=== PATIENT | female | born 1950 | race Caucasian/White ===

== ENCOUNTER 2016-12-10 10:36 | Emergency (ER) | payer SELFPAY ==
[2016-12-10 13:23] VITALS: BP 126/72
--- NOTE | 2016-12-10 15:21 | UC ---
Respiratory Complaint HPI - HPI Summary HPI Summary: patient presents to with CC of cough, sinus pressure and mucous production x9 days. She recently traveled here from [facility] and states she has been under stress. Denies fevers. Aches and chills x 1 day. Denies smoking history or other lung disease. She is otherwise healthy. Taken nyquil and dayquil without relief. cough is 8/10 and productive. Denies other symptoms. - History of Current Complaint Chief Complaint: UCRespiratory Stated Complaint: COUGH, AND SORE THROAT Time Seen by Provider: 12/10/16 13:19 Hx Obtained From: Patient ?: No Onset/Duration: Gradual Onset Timing: Intermittent Episodes Severity Initially: Moderate Severity Currently: Moderate Pain Intensity: 2 Pain Scale Used: 0-10 Numeric Character: Cough: Productive Aggravating Factors: Nothing Alleviating Factors: Nothing Associated Signs And Symptoms: Positive: Chills, Nasal Congestion, Sinus Discomfort - Risk Factors Pulmonary Embolism Risk Factors: Negative Cardiac Risk Factors: Negative Pseudomonas Risk Factors: Negative Tuberculosis Risk Factors: Negative - Allergies/Home Medications Allergies/Adverse Reactions: Allergies Allergy/AdvReac Type Severity Reaction Status Date / Time Aspirin Allergy See Comment Verified 04/05/16 18:11 PMH/Surg Hx/FS Hx/Imm Hx Previously Healthy: Yes - Surgical History Surgical History: Yes Surgery Procedure, Year, and Place: L knee surgery - Family History Known Family History: Positive: Cardiac Disease, Hypertension - Social History Occupation: Employed Full-time Lives: With Family Alcohol Use: Occasionally Substance Use Type: None Smoking Status (MU): Former Smoker Review of Systems Constitutional: Negative Skin: Negative ENT: Nasal Discharge, Sinus Congestion, Sinus Pain/Tenderness Respiratory: Cough Cardiovascular: Negative Motor: Negative Neurovascular: Negative Neurological: Negative Psychological: Negative All Other Systems Reviewed And Are Negative: Yes Physical Exam Triage Information Reviewed: Yes Appearance: Well-Appearing, No Pain Distress, Well-Nourished Vital Signs: Initial Vital Signs Temp 97.8 F 12/10/16 10:41 Pulse 65 12/10/16 10:41 Resp 16 12/10/16 10:41 BP 126/73 12/10/16 10:41 Pulse Ox 100 12/10/16 10:41 Vital Signs Reviewed: Yes Eye Exam: Normal Eyes: Positive: Conjunctiva Clear ENT: Positive: Pharynx normal, Nasal congestion, Nasal drainage, Other: - pain on palpation of sinus Dental Exam: Normal Neck exam: Normal Neck: Positive: Supple, Nontender, No Lymphadenopathy Respiratory Exam: Normal Respiratory: Positive: Chest non-tender Cardiovascular Exam: Normal Cardiovascular: Positive: RRR Musculoskeletal Exam: Normal Musculoskeletal: Positive: Strength Intact Neurological Exam: Normal Neurological: Positive: Alert Psychological: Positive: Normal Response To Family, Age Appropriate Behavior Skin Exam: Normal Diagnostic Evaluation - Laboratory O2 Sat by Pulse Oximetry: 97 Respiratory Course/Dx - Course Course Of Treatment: Patient with sinus pressure and pain on palpation of left maxillary sinus. Productive cough x 9 days. Lungs CTA. Will treat with Augmentin and give cough medication. Patient OK with discharge. - Differential Dx/Diagnosis Differential Diagnosis/HQI/PQRI: Bronchitis, Lower Resp Infection, Sinusitis Provider Diagnoses: Sinusitis Discharge - Discharge Plan Condition: Stable Disposition: HOME Prescriptions: Amoxicillin/Clavulanate TAB* [Augmentin TAB 875*] 875 mg PO BID #10 tab guaiFENesin/CODIEN 100MG-10MG* [Robitussin AC 100Mg-10Mg*] 10 ml PO BID #120 udc MDD 10 Patient Education Materials: Sinusitis (ED) Referrals: No Primary Care Phys,NOPCP [Primary Care Provider] - Additional Instructions: Follow up with PCP Take antibiotic as prescribed Robitussin with codeine as needed for cough Humidifier in the home will help. Warm water with lemon and honey or tea for sore throat and congestion. Take medications as prescribed. IF symptoms do not improve in 1 week or you develop fevers, return to the . Tylenol for any discomfort
== END 2016-12-10 14:15 | disposition home or self-care (01) ==
LOC: UCEAST 10:36
DX: J32.9 Chronic sinusitis, unspecified (principal); Z87.891 Personal history of nicotine dependence
CPT/HCPCS: 99212; G0463

== ENCOUNTER 2017-02-14 10:39 | Day surgery (SDC) | payer BC ==
[~2017-02-14 10:39] MED LIST: Buffered Lidocaine 0.9% SYRIN* 5 ML/SYR SYRINGE INTRADERM ONE; Buffered Lidocaine 0.9% SYRIN* 5 ML/SYR SYRINGE ONE; ceFAZolin 2 GM PREMIX (*) 50 ML IVPB ONE
[2017-02-14] MEDS ORDERED: Bupivacaine 0.5% SDV PF* 30 ML VIAL ONE (11:05)
[2017-02-14] MEDS ORDERED: fentaNYL* 50 MCG/ML 2 ML VIAL (100 MCG VIAL) ONE (11:17)
[2017-02-14] MEDS ORDERED: Midazolam* 1 MG/ML 2 ML VIAL (2 MG) ONE (11:17)
[2017-02-14] MEDS ORDERED: Chloroprocaine 2%* 20 ML VIAL ONE (11:35)
[2017-02-14] MEDS ORDERED: fentaNYL* 50 MCG/ML 2 ML VIAL (100 MCG VIAL) IV PRN (12:00)
[2017-02-14] MEDS ORDERED: Ketorolac INJ* 30 MG/ML 1 ML VIAL IV PRN (12:00)
[2017-02-14] MEDS ORDERED: oxyCODONE/Acetamin 5/325 MG* TAB PO PRN (12:00)
[2017-02-14] MEDS ORDERED: DiMENhydriNATE IV* 50 MG/ML VIAL IV PUSH PRN (12:00)
[2017-02-14] MEDS ORDERED: oxyCODONE TAB* 5 MG TAB ONE (13:46)
[2017-02-14 14:03] VITALS: BP 124/70
--- NOTE | 2017-02-15 03:30 | OP ---
DATE OF OPERATION: 02/14/17 [facility] DATE OF : 54 SURGEON: Ilya Lipscomb MD FRANCHISE SPECIALIST: Brisa Gurrola PA-C ANESTHESIOLOGIST: Narayan Wei MD ANESTHESIA: Spinal PRE-OP DIAGNOSIS: Extensive tenosynovitis, left ankle soft tissues. POST-OP DIAGNOSIS: Extensive tenosynovitis, left ankle, soft tissues. OPERATIVE PROCEDURE: Biopsy and synovectomy, left posterolateral hind foot. DESCRIPTION OF PROCEDURE: The patient was taken to the operating room where we opened up along the fibula. We incised the retinaculum and subluxed the tendons anteriorly. There was a copious amount of pink and brownish synovium wrapping around the tendon and fully investing the posterolateral recess between the fibula and the tibia. We removed probably a 10 to 12 cubic centimeters of the synovium. We also sent cultures. In one area, the synovium appeared to be adherent to the posterior aspect of the fibula and also around the posterolateral edges of the subtalar joint appeared to be somewhat erosive at the margin of the joint. After irrigating and doing the biopsy, we replaced the tendons back in their sheath and repaired the retinaculum with through bone sutures. We then placed subcutaneous Vicryl and kenzie for the skin and a compression dressing plaster splint applied. [id number]/[facility] #: [id number] [facility] HEALTHElías
== END 2017-02-14 14:25 | disposition home or self-care (01) ==
LOC: OR 10:39
PROVIDERS: ATTEND Orthopaedic Surgery
DX: M65.872 Other synovitis and tenosynovitis, left ankle and foot (principal); I10 Essential (primary) hypertension; E78.5 Hyperlipidemia, unspecified; E07.9 Disorder of thyroid, unspecified; F41.9 Anxiety disorder, unspecified; Z88.6 Allergy status to analgesic agent
CPT/HCPCS: 87070; 87073; 87205; 88305; A9270-GY; C1776; J0690; J2250; J2400; J3010

== ENCOUNTER 2018-01-29 11:09 | Emergency (ER) | payer BC ==
[2018-01-29 11:23] VITALS: BP 145/74
--- NOTE | 2018-01-29 11:35 | UC ---
Epistaxis Nasal HPI - HPI Summary HPI Summary: This patient is a 67 year old F presenting to [facility] care with a chief complaint of pruritic feeling inside nose that began 3 days ago. The patient rates the pain 5/10 in severity. Symptoms aggravated by nothing. Symptoms alleviated by nothing. Patient reports bloody nasal discharge, pruritic eyes, discharge from eyes, and pruritic throat. Patient reports recently starting Elissa for these symptoms. - History of Current Complaint Chief Complaint: UCRespiratory Stated Complaint: SINUS COMPLAINT Time Seen by Provider: 01/29/18 11:27 Hx Obtained From: Patient ?: No Onset/Duration: Sudden Onset, Lasting Days, Still Present Timing: Constant Severity Initially: Moderate Severity Currently: Moderate Pain Intensity: 5 Pain Scale Used: 0-10 Numeric Aggravating Factor(s): Nothing Alleviating Factor(s): Nothing - Allergies/Home Medications Allergies/Adverse Reactions: Allergies Allergy/AdvReac Type Severity Reaction Status Date / Time aspirin Allergy Anaphylatic Verified 01/29/18 11:25 Shock PMH/Surg Hx/FS Hx/Imm Hx Previously Healthy: No Cardiovascular History: Hypertension Psychological History: Anxiety, Depression - Surgical History Surgical History: Yes Surgery Procedure, Year, and Place: L [facility], [facility]. [facility], [facility], [facility] LEFT FOOT BIOPSY-[facility] - Family History Known Family History: Positive: Cardiac Disease, Hypertension - Social History Occupation: Retired Lives: With Family Alcohol Use: Occasionally Alcohol Amount: social Substance Use Type: None Smoking Status (MU): Former Smoker Amount Used/How Often: 1/2 pack a day for 10 years When Did the Patient Quit Smoking/Using Tobacco: 2001 Review of Systems Eyes: Other - Positive pruritic eyes. Negative discharge from eyes ENT: Nasal Discharge - Bloody, Other - Positive pruritic throat and pruritic feeling inside nose All Other Systems Reviewed And Are Negative: Yes Physical Exam - Summary Physical Exam Summary: General: well-appearing, no pain distress Skin: warm, color reflects adequate perfusion, dry Head: normal Eyes: EOMI, CINDY ENT: Positive rhinorrhea. Erythematous nasal mucosa. Neck: supple, nontender Respiratory: CTA, breath sounds present Cardiovascular: RRR Abdomen: soft, nontender Bowel: present Musculoskeletal: normal, strength/ROM intact Neurological: sensory/motor intact, A&O x3 Psychological: affect/mood appropriate Triage Information Reviewed: Yes Vital Signs: Initial Vital Signs Temp 97.1 F 01/29/18 11:20 Pulse 67 01/29/18 11:20 Resp 12 01/29/18 11:20 BP 145/74 01/29/18 11:20 Pulse Ox 99 01/29/18 11:20 Vital Signs Reviewed: Yes Epistaxis Nasal Course/Dx - Course Course Of Treatment: DISCUSSED VIRAL VERSES BACTERIAL INFECTION AND THE ROLE OF ANTIBIOTICS. THE PATIENT WISHES TO BE ON ANTIBIOTICS AT THIS TIME. - Differential Dx/Diagnosis Provider Diagnoses: SINUSITIS Discharge - Sign-Out/Discharge Documenting (check all that apply): Patient Departure All imaging exams completed and their final reports reviewed: No Studies - Discharge Plan Condition: Stable Disposition: HOME Prescriptions: Amoxicillin/Clavulanate TAB* [Augmentin TAB 875*] 875 mg PO BID #20 tab Patient Education Materials: Sinusitis (ED) Referrals: Amadou Duobis NP [Primary Care Provider] - Additional Instructions: FOLLOW UP WITH YOUR DOCTOR IF NOT COMPLETELY IMPROVED. GET RECHECKED FOR ANY WORSENING OF YOUR CONDITION OR QUESTIONS OR CONCERNS. - Billing Disposition and Condition Condition: STABLE Disposition: Home - Attestation Statements Document Initiated by Scribe: Yes Documenting Scribe: Zunilda Neri Provider For Whom Scribe is Documenting (Include Credential): Justin Santillan MD Scribe Attestation: IZunilda, scribed for Justin Santillan MD on 01/29/18 at 1144. Scribe Documentation Reviewed: Yes Provider Attestation: The documentation as recorded by the [email or web address] abrams accurately reflects the service I personally performed and the decisions made by me, Justin Santillan MD
== END 2018-01-29 11:45 | disposition home or self-care (01) ==
LOC: UCEAST 11:09
DX: J32.9 Chronic sinusitis, unspecified (principal); Z88.6 Allergy status to analgesic agent; Z87.891 Personal history of nicotine dependence
CPT/HCPCS: 99212; G0463

== ENCOUNTER 2018-02-21 12:09 | Observation (INO) | payer BC ==
--- OUTSIDE RECORDS SUMMARY | 2018-02-21 12:33 | XMS REPORT | Continuity of Care Document ---
:1950 External Reference #:[id number] Author Name Dre Cain M.D. Address [address] [place] [address] Care Team Providers Name Role Phone Silvino CHAPIN, Amadou Primary Care Physician Unavailable Payers Type Date Identification Numbers Payment Provider Subscriber Policy Number: [id number] [facility] PayID: [id number] [address] [address] [place] [address] Advance Directives Description No Information Available Problems Description No Information Family History Date Family Member(s) Problem(s) Comments General Cancer General Heart Disease Social History Type Date Description Comments Sex Unknown Occupation Retired Tobacco Use Start: Unknown End: Former Occasional Smoker Quit at age 57. Unknown Tobacco Use Start: Unknown Never Smoked Cigars Tobacco Use Start: Unknown Never Smoked A Pipe Smokeless Tobacco Never Used Smokeless Tobacco ETOH Use Currently occasionally consumes alcohol Tobacco Use Start: Unknown End: Patient is a former smoker Unknown Smoking Status Reviewed: 02/14/18 Patient is a former smoker Allergies, Adverse Reactions, Alerts Date Description Reaction Status Severity Comments 02/14/2018 Aspirin Active difficulty breathing Medications Medication Date Status Form Strength Qnty SIG Indications Ordering Provider Olopatadine HCL 02/14/ Active Solution 0.6% 91.5gm use 2 J30.9 Dre Mehta 2017 sprays in [place] M.D. nostril twice daily Rosuvastatin / Active Tablets 10mg daily Unknown Calcium 0000 Alprazolam / Active Tablets 0.5mg bid Unknown 0000 Folic Acid / Active Tablets 1mg daily Unknown 0000 Vitamin B-12 / Active Tablets as Unknown 0000 Sub directed Vitamin D3 / Active Capsules as Unknown 0000 directed Acetaminophen-C / Active Tablets 300-30mg prn Unknown odeine #3 0000 Sulfasalazine / Active Tablets 500mg Take Two Unknown 0000 Tablets By Mouth Twice A Day Immunizations Description No Information Available Vital Signs Date Vital Result Comment 02/14/2018 11:12am Weight 152.00 lb Weight 68.947 kg Height 63 inches 5'3" Height in cm's 160.0 cm BMI (Body Mass Index) 26.9 kg/m2 Results Description No Information Available Procedures Description No Information Available Encounters Type Date Location Provider Dx Diagnosis Office Visit 02/14/2018 [place],After Dre Mehta J34.89 Other specified 11:00a 06/06/07 Jackie Cain disorders of nose and nasal sinuses J30.9 Allergic rhinitis, unspecified J35.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 The dryness of the nose and the itching over lap and the tonsil stonesare a different problem. For the nose we discussed using:Saline with AlkalolPonaris oilsaline gelApplication of Vaseline or antibiotic ointmentAntihistamines, Claritin or Elissa. I would stay away from decongestantsIntranasal antihistaminesIntranasal corticosteroids like Flonase but this might be more drying.Allergy testing and immunotherapy.J30.9 Allergic rhinitis, unspecifiedNew Medication:Olopatadine HCL 0.6 % - use 2 sprays in each nostril twice dailyComments:I think she will do well with the DoqtheyhrwsT01.8 Other chronic diseases of tonsils and adenoidsComments:The patient is developing tonsilloliths. We discussed that this is debris build-up from the colonization of the tonsils with bacteria. It is a natural process that can be very annoying. They can be removed with a pick. Otherwise tonsillectomy is needed.
--- OUTSIDE RECORDS SUMMARY | 2018-02-21 12:33 | XMS REPORT ---
:1950 External Reference #:[id number] Author Organization [employer] Address [address] [place] [address] Phone [phone] Care Team Providers Name Role Phone Ivonne Stahl MD Primary Care Physician Unavailable Payers Type Date Identification Numbers Payment Provider Subscriber Commercial Policy Number: [id number] [employer] Shawna Harrison PayID: [id number] [address] [address] [place] [address] Problems Date Description Provider Status Onset: 03/14/2017 Impaired fasting glycaemia Amadou Dubois NP Active Onset: 03/14/2017 Essential hypertension Amadou Dubois NP Active Onset: 03/14/2017 Hyperlipidemia Amadou Dubois NP Active Onset: 03/14/2017 Acquired hypothyroidism Amadou Dubois NP Active Family History Date Family Member(s) Problem(s) Comments General Heart Disease General Hypertension General Cancer General Rheumatoid Arthritis Father Prostate Cancer at 72 Mother Stomach Cancer at 90 Social History Type Date Description Comments Lives With Spouse Occupation Retired ETOH Use Rarely consumes alcohol Smoking Patient is a former smoker Quit 1996, Started age 19, smoked 5 cigs per week Exercise Type/Frequency Exercises sporadically Allergies, Adverse Reactions, Alerts Date Description Reaction Status Severity Comments 02/08/2017 Aspirin active diff. breathing Medications Medication Date Status Form Strength Qnty SIG Indications Ordering Provider Omeprazole 02/20 Active Capsules 20mg 90cap 1 by mouth K21.[address] espinoza once daily DARI Dubois Losartan Potassium 02/13 Active Tablets 50mg 90tab 1 by mouth Amadou s once daily DARI Dubois Crestor 01/31 Active Tablets 10mg 90tab 1 by mouth Amadou s every day DARI Dubois Folic Acid 12/06 Active Tablets 1mg 90tab take one s capsule/tab Tony, let daily M.D. by mouth Caltrate 600+D 12/06 Active Tablets 600-800mg 60tab take one -Unit s capsule/tab Tony, let by M.D. mouth twice daily Alendronate Sodium 12/06 Active Tablets 70mg 4tabs 1 by mouth weekly 1 Tony, hour before M.D. breakfast with a full glass of water sitting up Lidoderm 12/01 Active Patches 5% 30uni 12 hours on ts 12 hours DARI Dubois off to affected area as needed Alprazolam 12/01 Active Tablets 0.5mg 60tab 1 tablet s twice daily DARI Dubois as needed, anxiety Sulfasalazine 11/16 Active Tablets 500mg 360ta take two bs tablets by Tony, mouth twice M.D. a day Escitalopram 11/16 Active Tablets 5mg 90tab 1 by mouth F41.9 Amadou s every day DARI Dubois Acetaminophen-Code 11/16 Active Tablets 300-30mg 30tab 1-2 tablets M25.472 Amadou ine #3 s every 8 DARI Dubois hours (mdd acetominoph en 4g) Rollator Walker 03/22 Active Misc M65.872 Jackie Lipscomb Accu-Chek Compact 03/14 Active Kit 1unit test twice R73.01 Amadou Plus Care Kit /2016 s daily and DARI Dubois as needed Accu-Chek Compact 03/14 Active Strips 102un test twice Amadou Plus 2017 its daily and DARI Dubois as needed Blood Glucose Test 03/09 Active Strips 60uni check blood R73.01 ts glucose 1-2 DARI Dubois times daily Vitamin D-3 00 Active Capsules 1000Unit 2 by mouth Unknown /0000 every day [place] 3 00/00 Active Capsules 1 tab by Unknown /0000 mouth every day Acetaminophen 00/00 Active Tablets 325mg prn Unknown /0000 Plaquenil 05/10 Hx Tablets 200mg 360ta 1 by mouth M25.472 bs every day Tony, - for 1 week M.D. 11/16 then 2 by mouth daily ongoing Knee Scooter 03/22 Hx M65.872 Ruel - M.D. 05/18 Losartan Potassium 03/09 Hx Tablets 25mg 90tab 1 by mouth alexis every day DARI Dubois - 02/13 Oxycodone HCL 02/14 Hx Tablets 5mg 40tab 1-2 tabs by Ilya s mouth lenin Lipscomb - 4-6 hours M.D. 03/06 as needed Lexapro Hx Tablets 5mg 1 by mouth Unknown /0000 every day - 05/18 Iron 00 Hx Tablets 28mg 1 by mouth Unknown /0000 every day - 04/07 Vitamin C ER 00 Hx Capsules 500mg 1 by mouth Unknown /0000 ER every day - 11/16 Folic Acid Hx Tablets 400mcg take two Unknown /0000 tablet by - mouth every (supplement ) Chelated Magnesium 00 Hx Tablets 100mg Unknown /0000 - 05/18 Hydroxychloroquine Hx Tablets 200mg take one Unknown Sulfate /0000 tablet by - mouth twice 02/14 a Azulfidine En-Tabs 00 Hx Tablets 500mg take one Amadou /0000 DR tablet by DARI Dubois - mouth twice 11/16 a Immunizations CPT Code Status Date Vaccine Reaction Lot # [id number] Given 02/14/2018 Influenza Virus Vaccine, no immediate reaction [id number] Quadrivalent, Split, noted Preservative Free [id number] Given 11/16/2017 Pneumococcal Conjugate No immediate [id number] Vaccine 13 Valent For reaction..jh Intramuscular Use Vital Signs Date Vital Result Comment 02/20/2018 Height 62 inches 5'2" pt stated Weight 149.00 lb Heart Rate 80 /min BP Systolic 123 mmHg BP Diastolic 70 mmHg O2 % BldC Oximetry 98 % BMI (Body Mass Index) 27.2 kg/m2 02/14/2018 Height 62 inches 5'2" pt stated Weight 161.00 lb Heart Rate 86 /min BP Systolic Sitting 146 mmHg BP Diastolic Sitting 78 mmHg Pain Level 3 O2 % BldC Oximetry 98 % BMI (Body Mass Index) 29.4 kg/m2 02/13/2018 Height 62 inches 5'2" pt stated Weight 153.00 lb Heart Rate 86 /min BP Systolic 140 mmHg BP Diastolic 80 mmHg O2 % BldC Oximetry 98 % BMI (Body Mass Index) 28.0 kg/m2 01/23/2018 Height 62 inches 5'2" pt stated Weight 152.00 lb Heart Rate 78 /min BP Systolic 104 mmHg BP Diastolic 66 mmHg Respiratory Rate 12 /min Pain Level 7 BMI (Body Mass Index) 27.8 kg/m2 12/06/2017 Height 62 inches 5'2" pt stated Weight 155.25 lb Heart Rate 75 /min BP Systolic Sitting 118 mmHg BP Diastolic Sitting 78 mmHg Pain Level 7 O2 % BldC Oximetry 96 % BMI (Body Mass Index) 28.4 kg/m2 11/16/2017 Height 62 inches 5'2" pt stated Weight 155.75 lb Heart Rate 74 /min BP Systolic 109 mmHg BP Diastolic 68 mmHg Body Temperature 96.7 F O2 % BldC Oximetry 96 % BMI (Body Mass Index) 28.5 kg/m2 05/19/2017 Height 62 inches 5'2" pt stated Weight 150.00 lb pt stated Heart Rate 78 /min BP Systolic 130 mmHg BP Diastolic 92 mmHg Respiratory Rate 78 /min Body Temperature 97.3 F Pain Level 7 BMI (Body Mass Index) 27.4 kg/m2 05/12/2017 Height 62 inches 5'2" Weight 150.00 lb Respiratory Rate 14 /min Pain Level 5 BMI (Body Mass Index) 27.4 kg/m2 05/10/2017 Height 62 inches 5'2" Weight 150.00 lb Heart Rate 63 /min BP Systolic Sitting 129 mmHg BP Diastolic Sitting 76 mmHg Respiratory Rate 14 /min Pain Level 8 BMI (Body Mass Index) 27.4 kg/m2 04/07/2017 Height 62 inches 5'2" Weight 150.00 lb Heart Rate 59 /min BP Systolic Sitting 133 mmHg BP Diastolic Sitting 78 mmHg Respiratory Rate 14 /min Pain Level 5 BMI (Body Mass Index) 27.4 kg/m2 03/22/2017 Height 62 inches 5'2" Weight 148.00 lb Heart Rate 56 /min BP Systolic 130 mmHg BP Diastolic 80 mmHg Body Temperature 98.0 F Pain Level 0 BMI (Body Mass Index) 27.1 kg/m2 03/09/2017 Height 62 inches 5'2" Weight 148.00 lb Heart Rate 67 /min BP Systolic Sitting 124 mmHg BP Diastolic Sitting 78 mmHg O2 % BldC Oximetry 98 % BMI (Body Mass Index) 27.1 kg/m2 02/22/2017 Height 62 inches 5'2" Weight 145.00 lb BP Systolic 124 mmHg BP Diastolic 68 mmHg Respiratory Rate 20 /min Body Temperature 97.4 F Pain Level 3 BMI (Body Mass Index) 26.5 kg/m2 02/11/2017 Height 62 inches 5'2" Weight 145.00 lb Heart Rate 60 /min BP Systolic 120 mmHg BP Diastolic 70 mmHg Respiratory Rate 16 /min Body Temperature 97.6 F Pain Level 8 when standing BMI (Body Mass Index) 26.5 kg/m2 02/08/2017 Height 62 inches 5'2" Weight 145.00 lb Heart Rate 68 /min BP Systolic Sitting 120 mmHg BP Diastolic Sitting 78 mmHg Body Temperature 98.2 F BMI (Body Mass Index) 26.5 kg/m2 Results Test Date Test Result H/L Range Note Laboratory test finding 02/14/2018 Erythrocyte Sed Rate 80 mm/Hr High 0- 40 C Reactive Protein 9.62 mg/L High <8.01 Quantiferon Gold TB 02/14/2018 QuantiFERON-Tb Gold Plus Negative Negative 1 TB1 Ag minus Nil Result 0.27 IU/mL TB2 Ag minus Nil Result 0.29 IU/mL TB Mitogen minus Nil Result 7.88 IU/mL TB Nil Result 0.02 IU/mL 2 Laboratory test finding 02/10/2018 Lactic Acid 1.6 mmol/L 0.5-2.0 3 CBC Auto Diff 02/10/2018 White Blood Count 7.1 10^3/uL 3.5-10.8 Red Blood Count 4.00 10^6/uL 4.00-5.40 Hemoglobin 11.8 g/dL Low 12.0-16.0 Hematocrit 35 % 35-47 Mean Corpuscular Volume 87 fL 80-97 Mean Corpuscular Hemoglobin 30 pg 27-31 Mean Corpuscular HGB Conc 34 g/dL 31-36 Red Cell Distribution Width 15 % 10.5-15 Platelet Count 233 10^3/uL 150-450 Mean Platelet Volume 8.9 um3 7.4-10.4 Abs Neutrophils 4.2 10^3/uL 1.5-7.7 Abs Lymphocytes 2.2 10^3/uL 1.0-4.8 Abs Monocytes 0.5 10^3/uL 0-0.8 Abs Eosinophils 0.1 10^3/uL 0-0.6 Abs Basophils 0 10^3/uL 0-0.2 Abs Nucleated RBC 0 10^3/uL Granulocyte % 59.7 % 38-83 Lymphocyte % 30.6 % 25-47 Monocyte % 7.0 % 0-7 Eosinophil % 2.0 % 0-6 Basophil % 0.7 % 0-2 Nucleated Red Blood Cells % 0.1 Comp Metabolic Panel 02/10/2018 Sodium 131 mmol/L Low 135-145 Potassium 4.0 mmol/L 3.5-5.0 Chloride 99 mmol/L Low 101-111 Co2 Carbon Dioxide 25 mmol/L 22-32 Anion Gap 7 mmol/L 2-11 Glucose 125 mg/dL High 70-100 Blood Urea Nitrogen 8 mg/dL 6-24 Creatinine 0.68 mg/dL 0.51-0.95 BUN/Creatinine Ratio 11.8 8-20 Calcium 9.6 mg/dL 8.6-10.3 Total Protein 8.2 g/dL 6.4-8.9 Albumin 4.1 g/dL 3.2-5.2 Globulin 4.1 g/dL High 2-4 Albumin/Globulin Ratio 1.0 1-3 Total Bilirubin 0.40 mg/dL 0.2-1.0 Alkaline Phosphatase 91 U/L 34-104 Alt 25 U/L 7-52 Ast 20 U/L 13-39 Egfr Non- 86.8 >60 Egfr 105.1 >60 4 Laboratory test finding 02/10/2018 Troponin-I (TnI) 0.00 ng/mL <0.04 5 D Dimer Quantitative < 200 ng/mL Less Than 230 6 Lipid Profile (Trig/Chol/HDL) 01/27/2018 Triglycerides 176 mg/dL 7 Cholesterol 290 mg/dL 8 HDL Cholesterol 40.1 mg/dL 9 LDL Cholesterol 215 mg/dL 10 Comp Metabolic Panel 01/27/2018 Sodium 137 mmol/L 135-145 Potassium 4.3 mmol/L 3.5-5.0 Chloride 103 mmol/L 101-111 Co2 Carbon Dioxide 27 mmol/L 22-32 Anion Gap 7 mmol/L 2-11 Glucose 97 mg/dL 70-100 Blood Urea Nitrogen 12 mg/dL 6-24 Creatinine 0.67 mg/dL 0.51-0.95 BUN/Creatinine Ratio 17.9 8-20 Calcium 9.5 mg/dL 8.6-10.3 Total Protein 7.9 g/dL 6.4-8.9 Albumin 4.0 g/dL 3.2-5.2 Globulin 3.9 g/dL 2-4 Albumin/Globulin Ratio 1.0 1-3 Total Bilirubin 0.40 mg/dL 0.2-1.0 Alkaline Phosphatase 96 U/L 34-104 Alt 25 U/L 7-52 Ast 20 U/L 13-39 Egfr Non- 88.3 >60 Egfr 106.9 >60 11 Celiac Hla 12/06/2017 Hla-Dqa1 SEE BELOW 12 Hla-DQB1 SEE BELOW 13 Celiac Gene Pairs Present? Yes Celiac Gene Interpretation See Comment 14 Celiac Panel 12/06/2017 Tissue Transglutaminase IgA Ab 1.6 U/mL 15 Immunoglobulin A 762 mg/dL 61 - 356 Celiac Interpretation See Comment 16 Laboratory test finding 12/06/2017 Vitamin D, 1,25 Dihydroxy 57 pg/mL 18- 78 17 Protein Electrophoresis 12/06/2017 Total Protein(Pep) 8.3 g/dL 6.3 - 7.9 Albumin 3.5 g/dL 3.4-4.7 Alpha-1 Globulin 0.3 g/dL 0.1-0.3 Alpha-2 Globulin 0.9 g/dL 0.6-1.0 Beta Globulin 1.4 g/dL 0.7-1.2 Gamma Globulin 2.2 g/dL 0.6-1.6 Albumin/Globulin Ratio 0.74 Impression See Comment 18 Comp Metabolic Panel 12/06/2017 Sodium 133 mmol/L Low 135-145 Potassium 4.0 mmol/L 3.5-5.0 Chloride 99 mmol/L Low 101-111 Co2 Carbon Dioxide 25 mmol/L 22-32 Anion Gap 9 mmol/L 2-11 Glucose 89 mg/dL 70-100 Blood Urea Nitrogen 11 mg/dL 6-24 Creatinine 0.66 mg/dL 0.51-0.95 BUN/Creatinine Ratio 16.7 8-20 Calcium 9.5 mg/dL 8.6-10.3 Total Protein 8.2 g/dL 6.4-8.9 Albumin 4.1 g/dL 3.2-5.2 Globulin 4.1 g/dL High 2-4 Albumin/Globulin Ratio 1.0 1-3 Total Bilirubin 0.40 mg/dL 0.2-1.0 Alkaline Phosphatase 80 U/L 34-104 Alt 23 U/L 7-52 Ast 19 U/L 13-39 Egfr Non- 89.9 >60 Egfr 108.8 >60 19 CBC Auto Diff 12/06/2017 White Blood Count 6.2 10^3/uL 3.5-10.8 Red Blood Count 3.94 10^6/uL Low 4.00-5.40 Hemoglobin 11.7 g/dL Low 12.0-16.0 Hematocrit 34 % Low 35-47 Mean Corpuscular Volume 87 fL 80-97 Mean Corpuscular Hemoglobin 30 pg 27-31 Mean Corpuscular HGB Conc 34 g/dL 31-36 Red Cell Distribution Width 14 % 10.5-15 Platelet Count 247 10^3/uL 150-450 Mean Platelet Volume 9.5 um3 7.4-10.4 Abs Neutrophils 2.5 10^3/uL 1.5-7.7 Abs Lymphocytes 2.9 10^3/uL 1.0-4.8 Abs Monocytes 0.6 10^3/uL 0-0.8 Abs Eosinophils 0.1 10^3/uL 0-0.6 Abs Basophils 0.1 10^3/uL 0-0.2 Abs Nucleated RBC 0 10^3/uL Granulocyte % 41.1 % 38-83 Lymphocyte % 46.7 % 25-47 Monocyte % 9.0 % High 0-7 Eosinophil % 2.0 % 0-6 Basophil % 1.2 % 0-2 Nucleated Red Blood Cells % 0.1 Laboratory test finding 12/06/2017 Erythrocyte Sed Rate 65 mm/Hr High 0- 40 C Reactive Protein 11.51 mg/L High <8.01 Laboratory test finding 05/17/2017 Erythrocyte Sed Rate 80 mm/Hr High 0- 30 20 C Reactive Protein 9.01 mg/L High < 5.00 21 CBC Auto Diff 05/17/2017 White Blood Count 7.4 10^3/uL 3.5-10.8 Red Blood Count 3.98 10^6/uL Low 4.0-5.4 Hemoglobin 12.0 g/dL 12.0-16.0 Hematocrit 36 % 35-47 Mean Corpuscular Volume 89 fL 80-97 Mean Corpuscular Hemoglobin 30 pg 27-31 Mean Corpuscular HGB Conc 34 g/dL 31-36 Red Cell Distribution Width 14 % 10.5-15 Platelet Count 247 10^3/uL 150-450 Mean Platelet Volume 10 um3 7.4-10.4 Abs Neutrophils 3.9 10^3/uL 1.5-7.7 Abs Lymphocytes 2.7 10^3/uL 1.0-4.8 Abs Monocytes 0.6 10^3/uL 0-0.8 Abs Eosinophils 0.1 10^3/uL 0-0.6 Abs Basophils 0.1 10^3/uL 0-0.2 Abs Nucleated RBC 0 10^3/uL Granulocyte % 52.5 % 38-83 Lymphocyte % 36.8 % 25-47 Monocyte % 8.2 % 1-9 Eosinophil % 1.5 % 0-6 Basophil % 1.0 % 0-2 Nucleated Red Blood Cells % 0 Comp Metabolic Panel 05/17/2017 Sodium 136 mmol/L 133-145 Potassium 4.2 mmol/L 3.5-5.0 Chloride 103 mmol/L 101-111 Co2 Carbon Dioxide 28 mmol/L 22-32 Anion Gap 5 mmol/L 2-11 Glucose 91 mg/dL 70-100 Blood Urea Nitrogen 16 mg/dL 6-24 Creatinine 0.71 mg/dL 0.51-0.95 BUN/Creatinine Ratio 22.5 High 8-20 Calcium 9.6 mg/dL 8.6-10.3 Total Protein 8.2 g/dL 6.4-8.9 Albumin 4.1 g/dL 3.2-5.2 Globulin 4.1 g/dL High 2-4 Albumin/Globulin Ratio 1.0 1-3 Total Bilirubin 0.40 mg/dL 0.2-1.0 Alkaline Phosphatase 80 U/L 34-104 Alt 20 U/L 7-52 Ast 17 U/L 13-39 Egfr Non- 82.9 >60 Egfr 106.6 >60 22 Hepatitis Acute Panel 04/07/2017 Hepatitis C Antibody Nonreactive Nonreactive Hepatitis A AB Igm Nonreactive Nonreactive Hepatitis B Core AB Igm Nonreactive Nonreactive Hepatitis B Surface Ag Nonreactive Nonreactive Laboratory test finding 04/07/2017 Creatine Kinase(CK) 52 U/L 10-223 Cyclic Citrullinated Pep Igg <15.6 U 23 Hla B27 04/07/2017 Hla B27 Negative 24 Hla B27 Interp See Comment 25 Tick-Borne Panel PCR Blood 04/07/2017 Babesia microti PCR Negative Negative Babesia ducani Negative Negative Babesia divergens/Mo-1 Negative Negative 26 Anaplasma phagocytophilum Negative Negative Ehrlichia chaffeensis Negative Negative Ehrlichia ewingii/canis Negative Negative Ehrlichia muris-like Negative Negative 27 B. miyamotoi PCR, B Negative Negative 28 Laboratory test finding 04/07/2017 Deoxycorticosteroids 10 ng/dL 10-79 29 Protein Electrophoresis 04/07/2017 Total Protein(Pep) 8.5 g/dL 6.3 - 7.9 Albumin 3.7 g/dL 3.4-4.7 Alpha-1 Globulin 0.2 g/dL 0.1-0.3 Alpha-2 Globulin 0.9 g/dL 0.6-1.0 Beta Globulin 1.2 g/dL 0.7-1.2 Gamma Globulin 2.5 g/dL 0.6-1.6 Albumin/Globulin Ratio 0.77 Impression See Comment 30 Laboratory test finding 04/07/2017 Angiotensin Converting 24 U/L 8 - 53 31 Enzyme Anca AB Ser If 04/07/2017 C-Anca Negative Negative P-Anca Negative Negative 32 Ssa/SSB Abs Igg 04/07/2017 SS-A/Ro Antibody <0.2 U 33 SS-B/La Antibody <0.2 U 34 Laboratory test finding 03/14/2017 Hemoglobin A1c (Glyco 5.8 % High 4.0- 5.6 35 HGB) Comp Metabolic Panel 03/14/2017 Sodium 135 mmol/L 133-145 Potassium 4.3 mmol/L 3.5-5.0 Chloride 102 mmol/L 101-111 Co2 Carbon Dioxide 28 mmol/L 22-32 Anion Gap 5 mmol/L 2-11 Glucose 85 mg/dL 70-100 Blood Urea Nitrogen 11 mg/dL 6-24 Creatinine 0.66 mg/dL 0.51-0.95 BUN/Creatinine Ratio 16.7 8-20 Calcium 9.6 mg/dL 8.6-10.3 Total Protein 8.1 g/dL 6.4-8.9 Albumin 4.1 g/dL 3.2-5.2 Globulin 4.0 g/dL 2-4 Albumin/Globulin Ratio 1.0 1-3 Total Bilirubin 0.40 mg/dL 0.2-1.0 Alkaline Phosphatase 93 U/L 34-104 Alt 24 U/L 7-52 Ast 20 U/L 13-39 Egfr Non- 90.2 >60 Egfr 116.0 >60 36 Laboratory test 03/14/2017 TSH (Thyroid Stim Horm) 1.51 mcIU/mL 0.34- 5.60 37 finding Lipid Profile 03/14/2017 Triglycerides 120 mg/dL 38 (Trig/Chol/HDL) Cholesterol 205 mg/dL 39 HDL Cholesterol 43.7 mg/dL 40 LDL Cholesterol 137 mg/dL 41 Laboratory test 02/14/2017 Surgical Pathology SEE RESULT BELOW 42 finding Laboratory test 02/14/2017 Surgical Pathology SEE RESULT BELOW 43 finding Wound Culture/Sensi 02/14/2017 Wound/Misc SEE RESULT BELOW 44, 45 Culture-Gram Stain Laboratory test 02/14/2017 Anaerobic Culture SEE RESULT BELOW 44, 46 finding Wound Culture/Sensi 02/14/2017 Wound/Misc SEE RESULT BELOW 47 Culture-Gram Stain Laboratory test 02/14/2017 Anaerobic Culture SEE RESULT BELOW 48 finding Laboratory test 02/14/2017 Point of Care 83 mg/dL 70-100 49 finding Glucose CBC Auto Diff 02/08/2017 White Blood Count 7.7 10^3/uL 3.5-10.8 Red Blood Count 4.21 10^6/uL 4.0-5.4 Hemoglobin 12.4 g/dL 12.0-16.0 Hematocrit 37 % 35-47 Mean Corpuscular Volume 87 fL 80-97 Mean Corpuscular Hemoglobin 29 pg 27-31 Mean Corpuscular HGB Conc 34 g/dL 31-36 Red Cell Distribution Width 15 % 10.5-15 Platelet Count 242 10^3/uL 150-450 Mean Platelet Volume 10 um3 7.4-10.4 Abs Neutrophils 3.6 10^3/uL 1.5-7.7 Abs Lymphocytes 3.1 10^3/uL 1.0-4.8 Abs Monocytes 0.6 10^3/uL 0-0.8 Abs Eosinophils 0.3 10^3/uL 0-0.6 Abs Basophils 0.1 10^3/uL 0-0.2 Abs Nucleated RBC 0 10^3/uL Granulocyte % 47.2 % 38-83 Lymphocyte % 39.8 % 25-47 Monocyte % 7.8 % 1-9 Eosinophil % 4.1 % 0-6 Basophil % 1.1 % 0-2 Nucleated Red Blood Cells % 0 Laboratory test finding 02/08/2017 Rheumatoid Factor <15 IU/mL <15 50 Erythrocyte Sed Rate 69 mm/Hr High 0-30 C Reactive Protein 7.62 mg/L High < 5.00 51 Nuclear AB (Marysol) By Ifa Igg <1:80 (Negative) 52 1 No interferon-gamma response to M. tuberculosis antigens was detected. Infection with M. tuberculosis is unlikely. A single negative result does not exclude infection with M. tuberculosis. In patients at high risk for M.tuberculosis infection, a second test should be considered in accordance with the 2017 ATS/IDSA/CDC Clinical Practice Guidelines for Diagnosis of Tuberculosis in Adults and Children [Montserrat PERES et. al. Clin. Infect. Dis. 2017;64(2):111-115]. 2 Test Performed by: [facility] [address] [place] [address] 3 [facility] Severe Sepsis and Septic Shock Management Bundle Measure requires all lactic acids initially measuring >2.0 mmol/L be repeated. 4 Because ethnic data is not always readily available, this report includes an eGFR for both -Americans and non- Americans. The National Kidney Disease Education Program (NKDEP) does not endorse the use of the MDRD equation for patients that are not between the ages of 18 and 70, are , have extremes of body size, muscle mass, or nutritional status, or are non- or non-. According to the National Kidney Foundation, irrespective of diagnosis, the stage of the disease is based on the level of kidney function: Stage Description GFR(mL/min/1.73 m(2)) 1 Kidney damage with normal or decreased GFR 90 2 Kidney damage with mild decrease in GFR 60-89 3 Moderate decrease in GFR 30-59 4 Severe decrease in GFR 15-29 5 Kidney failure <15 (or dialysis) 5 Result TnIDx:0.07 Called to [id number] at: 08:12:03 by:[id number] Read back by: [id number] CORRECTED REPORT --- Corrected on 02/10/18 1114 --- Troponin I previously reported as: 0.07 *C ng/mL Result TnIDx:0.07 Called to [id number] at: 08:12:03 by:[id number] Read back by: [id number] Please note: The following may produce a false positive D Dimer test: - Rheumatoid factor greater than 60 IU/ml - Plasma hemoglobin greater than 0.05 gm/dl - Bilirubin greater than 50 mg/dl - Lipids greater than 1000 mg/dl - FDP greater than 20 ug/ml 7 Desirable: <150 Borderline High: 150-199 High: 200-499 Very High: >500 8 Desirable: <200 Borderline High: 200-239 High: >239 9 Low: <40 Desirable: 40-60 High: >60 10 Desirable: <100 Near Optimal: 100-129 Borderline High: 130-159 High: 160-189 Very High: >189 11 Because ethnic data is not always readily available, this report includes an eGFR for both -Americans and non- Americans. The National Kidney Disease Education Program (NKDEP) does not endorse the use of the MDRD equation for patients that are not between the ages of 18 and 70, are , have extremes of body size, muscle mass, or nutritional status, or are non- or non-. According to the National Kidney Foundation, irrespective of diagnosis, the stage of the disease is based on the level of kidney function: Stage Description GFR(mL/min/1.73 m(2)) 1 Kidney damage with normal or decreased GFR 90 2 Kidney damage with mild decrease in GFR 60-89 3 Moderate decrease in GFR 30-59 4 Severe decrease in GFR 15-29 5 Kidney failure <15 (or dialysis) 12 RESULT: 01:02,03 REFERENCE VALUE Not Applicable 13 RESULT: 03:02,06:02 DQ Serologic Equivalent: 8,6 REFERENCE VALUE Not Applicable 14 These genes are permissive for celiac disease. The absence of HLA celiac permissive genes would make the presence of celiac disease unlikely. However, these genes can also be present in the normal population. ADDITIONAL INFORMATION Method: Molecular typing of HLA antigens performed using reverse SSOP and/or SSP methods, reported as serological equivalents and low to medium resolution molecular values. Performing Laboratory CLIA# [id number] Test Performed by: [facility] - [address] [address] 15 REFERENCE VALUE <4.0 (Negative) Test Performed by: [place] [address] 16 Negative serology. Celiac disease unlikely. However, approximately 10% of patients with celiac disease are seronegative. Also, patients who are already adhering to a gluten-free diet may be seronegative. If celiac disease is highly clinically suspected, consider HLA-DQ typing. Test Performed by: [facility] - [address] [address] 17 ADDITIONAL INFORMATION This test was developed and its performance characteristics determined by [facility] in a manner consistent with CLIA requirements. This test has not been cleared or approved by the U.S. Food and Drug Administration. Test Performed by: [facility] [address] [place] [address] 18 RESULT: Polyclonal hypergammaglobulinemia Test Performed by: [address] [address] 19 Because ethnic data is not always readily available, this report includes an eGFR for both -Americans and non- Americans. The National Kidney Disease Education Program (NKDEP) does not endorse the use of the MDRD equation for patients that are not between the ages of 18 and 70, are , have extremes of body size, muscle mass, or nutritional status, or are non- or non-. According to the National Kidney Foundation, irrespective of diagnosis, the stage of the disease is based on the level of kidney function: Stage Description GFR(mL/min/1.73 m(2)) 1 Kidney damage with normal or decreased GFR 90 2 Kidney damage with mild decrease in GFR 60-89 3 Moderate decrease in GFR 30-59 4 Severe decrease in GFR 15-29 5 Kidney failure <15 (or dialysis) 20 Please check labs 2 days before follow up 21 Acute inflammation: >10.00 22 Because ethnic data is not always readily available, this report includes an eGFR for both -Americans and non- Americans. The National Kidney Disease Education Program (NKDEP) does not endorse the use of the MDRD equation for patients that are not between the ages of 18 and 70, are , have extremes of body size, muscle mass, or nutritional status, or are non- or non-. According to the National Kidney Foundation, irrespective of diagnosis, the stage of the disease is based on the level of kidney function: Stage Description GFR(mL/min/1.73 m(2)) 1 Kidney damage with normal or decreased GFR 90 2 Kidney damage with mild decrease in GFR 60-89 3 Moderate decrease in GFR 30-59 4 Severe decrease in GFR 15-29 5 Kidney failure <15 (or dialysis) 23 REFERENCE VALUE <20.0 (Negative) Test Performed by: [address] [address] 24 REFERENCE VALUE Not Applicable 25 RESULT: HLA-B27 antigen was not detected. ADDITIONAL INFORMATION Method: Flow Cytometry Performing Laboratory CLIA# [id number] Test Performed by: [address] [address] 26 ADDITIONAL INFORMATION This test was developed and its performance characteristics determined by [facility] in a manner consistent with CLIA requirements. This test has not been cleared or approved by the U.S. Food and Drug Administration. 27 ADDITIONAL INFORMATION This test was developed and its performance characteristics determined by [facility] in a manner consistent with CLIA requirements. This test has not been cleared or approved by the U.S. Food and Drug Administration. 28 ADDITIONAL INFORMATION This test was developed and its performance characteristics determined by [facility] in a manner consistent with CLIA requirements. This test has not been cleared or approved by the U.S. Food and Drug Administration. Test Performed by: [facility] [place] [address] 29 ADDITIONAL INFORMATION This test was developed and its performance characteristics determined by [facility] in a manner consistent with CLIA requirements. This test has not been cleared or approved by the U.S. Food and Drug Administration. Test Performed by: [facility] [address] [place] [address] 30 RESULT: Polyclonal hypergammaglobulinemia Test Performed by: [facility] [place] [address] 31 Test Performed by: [facility] [place] [address] 32 Negative for cANCA and pANCA patterns by immunofluorescence. ADDITIONAL INFORMATION This test was developed and its performance characteristics determined by [facility] in a manner consistent with CLIA requirements. This test has not been cleared or approved by the U.S. Food and Drug Administration. Test Performed by: [facility] [address] [place] [address] 33 REFERENCE VALUE <1.0 (Negative) 34 REFERENCE VALUE <1.0 (Negative) Test Performed by: [facility] [address] [place] [address] 35 Therapeutic target for the treatment of diabetes mellitus patients is <7% HBA1C, and in selective patients <6.0%. Please refer to [place] [employer] diabetic care guidelines for further information. 36 Because ethnic data is not always readily available, this report includes an eGFR for both -Americans and non- Americans. The National Kidney Disease Education Program (NKDEP) does not endorse the use of the MDRD equation for patients that are not between the ages of 18 and 70, are , have extremes of body size, muscle mass, or nutritional status, or are non- or non-. According to the National Kidney Foundation, irrespective of diagnosis, the stage of the disease is based on the level of kidney function: Stage Description GFR(mL/min/1.73 m(2)) 1 Kidney damage with normal or decreased GFR 90 2 Kidney damage with mild decrease in GFR 60-89 3 Moderate decrease in GFR 30-59 4 Severe decrease in GFR 15-29 5 Kidney failure <15 (or dialysis) 37 FASTING 10 HOUR 38 Desirable <150 Borderline high 150-199 High 200-499 Very High >500 39 Desirable <200 Borderline high 200-239 High >239 40 Low <40 Desirable: 40-60 High: >60 41 Desirable: <100 mg/dL Near Optimal: 100-129 mg/dL Borderline High: 130-159 mg/dL High: 160-189 mg/dL Very High: >189 mg/dL 42 SEE RESULT BELOW Name: MARYSOL BERMUDEZ : [address]: Ilya Lipscomb MD Acct: [id number] Unit: [id number] AGE: 66 Location: OR Re02/14/17 SEX: F Status: DEP [facility] [place] SPEC: [id number] MICKIE: 02/14/17- [facility] DR: Ilya Lipscomb MD REQ: [id number] RECD: 02/14/17 STATUS: SOUT _ ORDERED: LEVEL 4 There is no evidence of a granulomatous process or necrobiosis of collagen. Although no specific features of rheumatoid arthritis are seen, the differential diagnosis includes autoimmune arthropathies such as rheumatoid arthritis, as well as non- specific chronic inflammatory processes such as pigmented villonodular tenosynovitis. Addendum Signed (signature on file) Roxie Meza MD 1055 FINAL DIAGNOSIS Left ankle synovium, excision: -- Marked chronic tenosynovitis. PRE-OPERATIVE DIAGNOSIS Left ankle synovitis GROSS DESCRIPTION The specimen is received in formalin labeled, Left Ankle Synovium, and consists of a 5.0 x 3.9 by up to 1.6 cm aggregate of hancock-pink irregular rubbery fibrous tissue fragments admixed with yellow fat. Pecan Mallow Dipper sections, one cassette. Signed (signature on file) Roxie Meza MD 05/22 1604 END OF REPORT * ML=Testing performed at Main Lab DEPARTMENT OF PATHOLOGY, [address] [place] [address] Marco A Novak M.D. Director [facility] # [id number] 43 SEE RESULT BELOW Name: MARYSOL BERMUDEZ : [address]: Ilya Lipscomb MD Acct: [id number] Unit: [id number] AGE: 66 Location: OR Re02/14/17 SEX: F Status: AGUSTIN VASQUESC SPEC: [id number] MICKIE: 02/14/17- SUBM DR: Ilya Lipscomb MD REQ: [id number] RECD: 02/14/17-6608 STATUS: SOUT _ ORDERED: HARLEY CONSULT, LEVEL [address] Hubert Bateman at [facility], [place], [place], outside accession number [id number], our surgical [id number] reported on 04/18/17 and received on . Original consultation report scanned into Pathology Consults. Final Diagnosis: Left ankle synovium, excision ([id number]; 02/14/2017): Synovium with marked plasmacytosis, most likely representing autoimmune disorder, such as rheumatoid arthritis. Addendum Signed (signature on file) Marco A Novak MD 1558 There is no evidence of a granulomatous process or necrobiosis of collagen. Although no specific features of rheumatoid arthritis are seen, the differential diagnosis includes autoimmune arthropathies such as rheumatoid arthritis, as well as non- specific chronic inflammatory processes such as pigmented villonodular tenosynovitis. Addendum Signed (signature on file) Roxie Meza MD 1055 FINAL DIAGNOSIS Left ankle synovium, excision: -- Marked chronic tenosynovitis. PRE-OPERATIVE DIAGNOSIS Left ankle synovitis CONTINUED ON NEXT PAGE * ML=Testing performed at Main Lab DEPARTMENT OF PATHOLOGY, [address] [place] [id number] Marco A Novak M.D. Director [facility] # [id number] RUN DATE: 04/27/17 [facility] LAB LIVE PAGE 2 Patient: LARAMARYSOL [id number] (Continued) GROSS DESCRIPTION (Continued) GROSS DESCRIPTION The specimen is received in formalin labeled, Left Ankle Synovium, and consists of a 5.0 x 3.9 by up to 1.6 cm aggregate of hancock-pink irregular rubbery fibrous tissue fragments admixed with yellow fat. Pecan Mallow Dipper sections, one cassette. Signed (signature on file) Roxie Meza MD 05/22 1604 END OF REPORT * ML=Testing performed at Main Lab DEPARTMENT OF PATHOLOGY, [address] [place] [address] Marco A Novak M.D. Director [facility] # [id number] 44 DEEPER LEFT ANKLE 45 SEE RESULT BELOW Name: MARYSOL BERMUDEZ : [address]: Ilya Lipscomb MD Acct: [id number] Unit: [id number] AGE: 66 Location: OR Re02/14/17 SEX: F Status: DEP SDC SPEC: [id number] MICKIE: 02/14/17-[address] [facility] [address]: Ilya Lipscomb MD REQ: [id number] RECD: 02/14/17 STATUS: MITALI CASH DR: Carin Primary Care Phys,NOP _ SOURCE: WOUND SPDESC:ANKLE LEFT ORDERED: Anaerobic Cult, Culture Stain COMMENTS: DEEPER LEFT ANKLE Procedure Result Reported Site Anaerobic Culture PENDING Wound/Misc Gram Stain Final 02/14/17- 1435 ML 3+ Neutrophils 1+ Epithelial Cells No Organisms Seen Wound/Misc Culture PENDING * ML - MAIN LAB ([facility]1) . END OF REPORT * ML=Testing performed at Main Lab DEPARTMENT OF PATHOLOGY, [address] [place] [address] Marco A Novak M.D. Director [facility] # [id number] 46 SEE RESULT BELOW Name: MARYSOL BERMUDEZ : [address]: Ilya Lipscomb MD Acct: [id number] Unit: [id number] AGE: 66 Location: OR Re02/14/17 SEX: F Status: AGUSTIN SDC SPEC: [id number] MICKIE: 02/14/17-[address] [facility] [address]: Ilya Lipscomb MD REQ: [id number] RECD: 02/14/17 STATUS: PIEDAD CASH DR: Carin Primary Care Phys,NOPCP _ SOURCE: WOUND SPDESC:ANKLE LEFT ORDERED: Anaerobic Cult, Culture Stain COMMENTS: DEEPER LEFT ANKLE Procedure Result Reported Site Anaerobic Culture Final 02/18/17- 0848 ML No Growth Day 4 Wound/Misc Gram Stain Final 02/14/17- 1435 ML 3+ Neutrophils 1+ Epithelial Cells No Organisms Seen Wound/Misc Culture Final 02/18/17- 0848 ML No Growth Day 4 * ML - MAIN LAB ([facility]) . END OF REPORT * ML=Testing performed at Main Lab DEPARTMENT OF PATHOLOGY, [address] [place] [address] Marco A Novak M.D. Director [facility] # [id number] 47 SEE RESULT BELOW Name: MARYSOL BERMUDEZ : [address]: Ilya Lipscomb MD Acct: [id number] Unit: [id number] AGE: 66 Location: OR Re02/14/17 SEX: F Status: DEP SDC SPEC: [id number] MICKIE: 02/14/17-[address] [facility] [address]: Ilya Lipscomb MD REQ: [id number] RECD: 02/14/177694 STATUS: RES SHAILESH DR: Carin Primary Care Phys,NOPCP _ SOURCE: WOUND SPDESC:ANKLE LEFT ORDERED: Anaerobic Cult, Culture Stain Procedure Result Reported Site Anaerobic Culture PENDING Wound/Misc Gram Stain Final 02/14/17- 1436 ML 1+ Neutrophils 1+ Epithelial Cells No Organisms Seen Wound/Misc Culture PENDING * ML - MAIN LAB ([facility]1) . END OF REPORT * ML=Testing performed at Main Lab DEPARTMENT OF PATHOLOGY, [address] [place] [address] Marco A Novak M.D. Director [facility] # [id number] 48 SEE RESULT BELOW Name: MARYSOL BERMUDEZ : [address]: Ilya Lipscomb MD Acct: [id number] Unit: [id number] AGE: 66 Location: OR Re02/14/17 SEX: F Status: AGUSTIN SDC SPEC: [id number] MICKIE: 02/14/17-[address]: Ilya Lipscomb MD REQ: [id number] RECD: 02/14/17 STATUS: PIEDAD CASH DR: Carin Primary Care Phys,NOPCP _ SOURCE: WOUND SPDESC:ANKLE LEFT ORDERED: Anaerobic Cult, Culture Stain Procedure Result Reported Site Anaerobic Culture Final 02/18/17- 0847 ML No Growth Day 4 Wound/Misc Gram Stain Final 02/14/17- 1436 ML 1+ Neutrophils 1+ Epithelial Cells No Organisms Seen Wound/Misc Culture Final 02/18/17- 0847 ML No Growth Day 4 * ML - MAIN LAB ([facility]1) . END OF REPORT * ML=Testing performed at Main Lab DEPARTMENT OF PATHOLOGY, [address] [place] [address] Marco A Novak M.D. Director [facility] # [id number] 49 Home Care Consultant: [id number] Test Performed by: [address] [address] 51 Acute inflammation: >10.00 52 <1:80 (Negative) REFERENCE VALUE <1:80 (Negative) Test Performed by: [address] [address] Procedures Date CPT Code Description Status Comment 11/28/2017 Bone Mineral Density Test Completed 04/14/2017 Mammogram Completed 02/14/2017 20434 Tenolysis Flexor Or Extensor Completed Tendon Leg Or Ankle 02/14/2017 02466 Tenolysis Flexor Or Extensor Completed Tendon Leg Or Ankle 02/08/2017 15798 Inject/Drain Joint/Bursa Completed Intermediate W/O US 06/06/2014 Colonoscopy Completed Per pt., in [facility] Encounters Type Date Location Provider CPT E/M Dx Office Visit 02/13/2018 10:20a [facility] [place] [address] E78.5 Mckenna I10 Z68.28 Office Visit 01/23/2018 2:00p [facility] [place] [address] M65.872 C.M.A. Office Visit 12/06/2017 2:40p [facility] Dre Jimenez [address] M65.872 Of Deniz Mejia R70.0 R79.82 Z79.899 M81.0 Office Visit 11/16/2017 10:40a [facility] [place] [address] E78.5 Mckenna I10 F41.9 M25.472 M89.8x8 Z23 Office Visit 05/19/2017 11:00a [facility] [address] M65.872 C.M.A. Jackie Office Visit 05/10/2017 4:20p [facility] Dre Jimenez [address] M65.872 Of Deniz Mejia M25.472 R70.0 R79.82 Z79.899 Office Visit 04/07/2017 1:00p [facility] Dre Jimenez [address] M65.872 Of Deniz Mejia M25.472 R70.0 R79.82 Z79.899 Office Visit 03/09/2017 2:20p [facility] [place] [address] I10 [place] E78.5 E89.0 J30.9 R73.01 Office Visit 02/11/2017 1:15p [facility], [address] M65.872 C.M.A. MMonse. Office Visit 02/08/2017 11:00a [facility], [address] M65.872 C.M.A. MMaryellen M25.472 Plan of Care Future Appointment(s):02/21/2018 4:20 pm - Dre Jimenez M.D. at [facility]02/20/2018 - Amadou Dubois NPF41.9 Anxiety disorder, unspecifiedComments:Continue taking the Lexapro daily. This may take up to 8 weeks to become effective. If you have no improvement after 4 weeks, you can increase to 7.5mg. Use the xanax as needed.I10 Essential (primary) hypertensionComments:Continue taking the losartan, 25mg twice daily.K21.9 Gastro -esophageal reflux disease without esophagitisNew Medication:Omeprazole 20 mgComments:I have sent in a prescription for the Omeprazole. Start takign that once daily about 30 mintues before dinner. Lifestyle modification is important in acid reflux. Continue to avoid eating within 3-4 hours of bed, elevate the head of you bed, try to limit caffeine and alcohol, and any foods identified as triggers. Please let me know if symptoms do not improve or worsen.R94.39 Abnormal result of other cardiovascular function studyReferral:Jt Bran MD, Cardiovsclr Disease
--- OUTSIDE RECORDS SUMMARY | 2018-02-21 12:33 | XMS REPORT ---
:1950 External Reference #:[id number] Author Organization [employer] Address [address] [facility] [place] [address] Phone [phone] Care Team Providers Name Role Phone Ivonne Stahl MD Primary Care Physician Unavailable Payers Type Date Identification Numbers Payment Provider Subscriber Commercial Policy Number: [id number] [employer] Shawna Harrison PayID: [id number] [address] [address] [place] [address] Problems Date Description Provider Status Onset: 03/14/2017 [...] Form Strength Qnty SIG Indications Ordering Provider Losartan Potassium 02/13 Active Tablets 50mg 90tab [...] 30uni 12 hours on ts 12 hours Silvino, GEOPHYSICS SCIENTIST off to affected area as needed Alprazolam 12/01 Active Tablets 0.5mg 20tab 1 tablet s twice daily Silvino, GEOPHYSICS SCIENTIST as needed, anxiety Sulfasalazine 11/16 Active Tablets 500mg 360ta take two bs tablets by Tony, mouth twice M.D. a day Escitalopram 11/16 Active Tablets 5mg 90tab 1 by mouth F41.9 Amadou s every day Silvino, GEOPHYSICS SCIENTIST Acetaminophen-Code 11/16 Active Tablets 300-30mg 30tab 1-2 tablets M25.472 Amadou ine # s every 8 Silvino, GEOPHYSICS SCIENTIST hours (mdd acetominoph en 4g) Rollator Walker 03/22 Active Misc M65.872 Ilya Mary Lipscomb M.D. Accu-Chek Compact 03/14 Active Kit 1unit test twice R73.01 Amadou Plus Care Kit /2016 s daily and Silvino, GEOPHYSICS SCIENTIST as needed Accu-Chek Compact 03/14 Active Strips 102un test twice Amadou Plus /2017 its daily and Silvino, GEOPHYSICS SCIENTIST as needed Blood Glucose Test 03/09 Active Strips 60uni check blood R73.01 Amadou ts glucose 1-2 Silvino, GEOPHYSICS SCIENTIST times daily Vitamin D-3 00 Active Capsules 1000Unit 2 by mouth Unknown /0000 every day Wenden 3 00 Active Capsules 1 tab by Unknown /0000 mouth every day Acetaminophen 00 Active Tablets 325mg prn Unknown /0000 Plaquenil 05/10 Hx Tablets 200mg 360ta 1 by mouth M25.472 bs every day Tony, - for 1 week M.D. 11/16 then 2 by /2017 mouth daily ongoing Knee Scooter 03/22 Hx M65.872 Long Lipscomb M.D. 05/18 Losartan Potassium 03/09 Hx Tablets 25mg 90tab 1 by mouth Amadou s every day DARI Dubois - 02/13 Oxycodone HCL 02/14 Hx Tablets 5mg 40tab 1-2 tabs by s mouth every Ruel, - 4-6 hours M.D. 03/06 as needed Lexapro Hx Tablets 5mg 1 by mouth Unknown /0000 every day - 05/18 Iron 00 Hx Tablets 28mg 1 by mouth Unknown /0000 every day - 04/07 Vitamin C ER Hx Capsules 500mg 1 by mouth Unknown /0000 ER every day - 11/16 Folic Acid Hx Tablets 400mcg take two Unknown /0000 tablet by - mouth every (supplement ) Chelated Magnesium 00 Hx Tablets 100mg Unknown /0000 - 05/18 Hydroxychloroquine Hx Tablets 200mg take one Unknown Sulfate /0000 tablet by - mouth twice 02/14 a Azulfidine En-Tabs Hx Tablets 500mg take one Amadou /0000 DR tablet by DARI Dubois - mouth twice 11/16 a Immunizations CPT Code Status Date Vaccine Reaction Lot # 76734 Given 02/14/2018 Influenza Virus Vaccine, no immediate reaction [id number] Quadrivalent, Split, noted Preservative Free 60925 Given 11/16/2017 Pneumococcal Conjugate No immediate [id number] Vaccine 13 Valent For reaction..jh Intramuscular Use Vital Signs Date Vital Result Comment 02/14/2018 Height 62 inches 5'2" pt stated [...] Result H/L Range Note Laboratory test finding 02/10/2018 Lactic Acid 1.6 mmol/L 0.5-2.0 1 CBC Auto Diff 02/10/2018 White Blood Count [...] Egfr Non- 86.8 >60 Egfr 105.1 >60 2 Laboratory test finding 02/10/2018 Troponin-I (TnI) 0.00 ng/mL <0.04 3 D Dimer Quantitative < 200 ng/mL Less Than 230 4 Lipid Profile (Trig/Chol/HDL) 01/27/2018 Triglycerides 176 mg/dL 5 Cholesterol 290 mg/dL 6 HDL Cholesterol 40.1 mg/dL 7 LDL Cholesterol 215 mg/dL 8 Comp Metabolic Panel 01/27/2018 Sodium 137 mmol/L [...] Egfr Non- 88.3 >60 Egfr 106.9 >60 9 Celiac Hla 12/06/2017 Hla-Dqa1 SEE BELOW 10 Hla-DQB1 SEE BELOW 11 Celiac Gene Pairs Present? Yes Celiac Gene Interpretation See Comment 12 Celiac Panel 12/06/2017 Tissue Transglutaminase IgA Ab 1.6 U/mL 13 Immunoglobulin A 762 mg/dL 61 - 356 Celiac Interpretation See Comment 14 Laboratory test finding 12/06/2017 Vitamin D, 1,25 Dihydroxy 57 pg/mL 18- 78 15 Protein Electrophoresis 12/06/2017 Total Protein(Pep) 8.3 g/dL 6.3 - 7.9 Albumin 3.5 g/dL 3.4-4.7 Alpha-1 Globulin 0.3 g/dL 0.1-0.3 Alpha-2 Globulin 0.9 g/dL 0.6-1.0 Beta Globulin 1.4 g/dL 0.7-1.2 Gamma Globulin 2.2 g/dL 0.6-1.6 Albumin/Globulin Ratio 0.74 Impression See Comment 16 Comp Metabolic Panel 12/06/2017 Sodium 133 mmol/L [...] Egfr Non- 89.9 >60 Egfr 108.8 >60 17 CBC Auto Diff 12/06/2017 White Blood Count [...] Sed Rate 80 mm/Hr High 0- 30 18 C Reactive Protein 9.01 mg/L High < 5.00 19 CBC Auto Diff 05/17/2017 White Blood Count [...] Egfr Non- 82.9 >60 Egfr 106.6 >60 20 Hepatitis Acute Panel 04/07/2017 Hepatitis C Antibody Nonreactive Nonreactive Hepatitis A AB Igm Nonreactive Nonreactive Hepatitis B Core AB Igm Nonreactive Nonreactive Hepatitis B Surface Ag Nonreactive Nonreactive Laboratory test finding 04/07/2017 Creatine Kinase(CK) 52 U/L 10-223 Cyclic Citrullinated Pep Igg <15.6 U 21 Hla B27 04/07/2017 Hla B27 Negative 22 Hla B27 Interp See Comment 23 Tick-Borne Panel PCR Blood 04/07/2017 Babesia microti PCR Negative Negative Babesia ducani Negative Negative Babesia divergens/Mo-1 Negative Negative 24 Anaplasma phagocytophilum Negative Negative Ehrlichia chaffeensis Negative Negative Ehrlichia ewingii/canis Negative Negative Ehrlichia muris-like Negative Negative 25 B. miyamotoi PCR, B Negative Negative 26 Laboratory test finding 04/07/2017 Deoxycorticosteroids 10 ng/dL 10-79 27 Protein Electrophoresis 04/07/2017 Total Protein(Pep) 8.5 g/dL 6.3 - 7.9 Albumin 3.7 g/dL 3.4-4.7 Alpha-1 Globulin 0.2 g/dL 0.1-0.3 Alpha-2 Globulin 0.9 g/dL 0.6-1.0 Beta Globulin 1.2 g/dL 0.7-1.2 Gamma Globulin 2.5 g/dL 0.6-1.6 Albumin/Globulin Ratio 0.77 Impression See Comment 28 Laboratory test finding 04/07/2017 Angiotensin Converting 24 U/L 8 - 53 29 Enzyme Anca AB Ser If 04/07/2017 C-Anca Negative Negative P-Anca Negative Negative 30 Ssa/SSB Abs Igg 04/07/2017 SS-A/Ro Antibody <0.2 U 31 SS-B/La Antibody <0.2 U 32 Laboratory test finding 03/14/2017 Hemoglobin A1c (Glyco 5.8 % High 4.0- 5.6 33 HGB) Comp Metabolic Panel 03/14/2017 Sodium 135 [...] Egfr Non- 90.2 >60 Egfr 116.0 >60 34 Laboratory test 03/14/2017 TSH (Thyroid Stim Horm) 1.51 mcIU/mL 0.34- 5.60 35 finding Lipid Profile 03/14/2017 Triglycerides 120 mg/dL 36 (Trig/Chol/HDL) Cholesterol 205 mg/dL 37 HDL Cholesterol 43.7 mg/dL 38 LDL Cholesterol 137 mg/dL 39 Laboratory test 02/14/2017 Surgical Pathology SEE RESULT BELOW 40 finding Laboratory test 02/14/2017 Surgical Pathology SEE RESULT BELOW 41 finding Wound Culture/Sensi 02/14/2017 Wound/Misc SEE RESULT BELOW 42, 43 Culture-Gram Stain Laboratory test 02/14/2017 Anaerobic Culture SEE RESULT BELOW 42, 44 finding Wound Culture/Sensi 02/14/2017 Wound/Misc SEE RESULT BELOW 45 Culture-Gram Stain Laboratory test 02/14/2017 Anaerobic Culture SEE RESULT BELOW 46 finding Laboratory test 02/14/2017 Point of Care 83 mg/dL 70-100 47 finding Glucose CBC Auto Diff 02/08/2017 White [...] finding 02/08/2017 Rheumatoid Factor <15 IU/mL <15 48 Erythrocyte Sed Rate 69 mm/Hr High 0-30 C Reactive Protein 7.62 mg/L High < 5.00 49 Nuclear AB (Marysol) By Ifa Igg <1:80 (Negative) 50 1 [facility] Severe Sepsis and Septic Shock Management Bundle Measure requires all lactic acids initially measuring >2.0 mmol/L be repeated. 2 Because ethnic data is not always readily [...] 15-29 5 Kidney failure <15 (or dialysis) 3 Result TnIDx:0.07 Called to [employer] at: 08:12:03 by:[id number] Read back by: [employer] CORRECTED REPORT --- Corrected on 02/10/18 1114 --- Troponin I previously reported as: 0.07 *C ng/mL Result TnIDx:0.07 Called to [employer] at: 08:12:03 by:[id number] Read back by: [employer] 4 Please note: The following may produce a false positive D Dimer test: - Rheumatoid factor greater than 60 IU/ml - Plasma hemoglobin greater than 0.05 gm/dl - Bilirubin greater than 50 mg/dl - Lipids greater than 1000 mg/dl - FDP greater than 20 ug/ml 5 Desirable: <150 Borderline High: 150-199 High: 200-499 Very High: >500 6 Desirable: <200 Borderline High: 200-239 High: >239 7 Low: <40 Desirable: 40-60 High: >60 8 Desirable: <100 Near Optimal: 100-129 Borderline High: 130-159 High: 160-189 Very High: >189 9 Because ethnic data is not always readily [...] 15-29 5 Kidney failure <15 (or dialysis) 10 RESULT: 01:02,03 REFERENCE VALUE Not Applicable 11 RESULT: 03:02,06:02 DQ Serologic Equivalent: 8,6 REFERENCE VALUE Not Applicable 12 These genes are permissive for celiac disease. The absence of HLA celiac permissive genes would make the presence of celiac disease unlikely. However, these genes can also be present in the normal population. ADDITIONAL INFORMATION Method: Molecular typing of HLA antigens performed using reverse SSOP and/or SSP methods, reported as serological equivalents and low to medium resolution molecular values. Performing Laboratory CLIA# [id number] Test Performed by: [facility] - [address] [address] 13 REFERENCE VALUE <4.0 (Negative) Test Performed by: [address] [address] 14 Negative serology. Celiac disease unlikely. However, approximately 10% of patients with celiac disease are seronegative. Also, patients who are already adhering to a gluten-free diet may be seronegative. If celiac disease is highly clinically suspected, consider HLA-DQ typing. Test Performed by: [address] [address] 15 ADDITIONAL INFORMATION This test was developed and its performance characteristics determined by [facility] in a manner consistent with CLIA requirements. This test has not been cleared or approved by the U.S. Food and Drug Administration. Test Performed by: [facility] [address] [place] [address] 16 RESULT: Polyclonal hypergammaglobulinemia Test Performed by: [facility] - [facility] [address] [place] [address] 17 Because ethnic data is not always readily [...] 15-29 5 Kidney failure <15 (or dialysis) 18 Please check labs 2 days before follow up 19 Acute inflammation: >10.00 20 Because ethnic data is not always readily [...] 15-29 5 Kidney failure <15 (or dialysis) 21 REFERENCE VALUE <20.0 (Negative) Test Performed by: [facility] - [address] [address] 22 REFERENCE VALUE Not Applicable 23 RESULT: HLA-B27 antigen was not detected. ADDITIONAL INFORMATION Method: Flow Cytometry Performing Laboratory CLIA# [id number] Test Performed by: [facility] - [address] [address] 24 ADDITIONAL INFORMATION This test was developed and its performance characteristics determined by [facility] in a manner consistent with CLIA requirements. This test has not been cleared or approved by the U.S. Food and Drug Administration. 25 ADDITIONAL INFORMATION This test was developed and its performance characteristics determined by [facility] in a manner consistent with CLIA requirements. This test has not been cleared or approved by the U.S. Food and Drug Administration. 26 ADDITIONAL INFORMATION This test was developed and its performance characteristics determined by [facility] in a manner consistent with CLIA requirements. This test has not been cleared or approved by the U.S. Food and Drug Administration. Test Performed by: [facility] - [address] [address] 27 ADDITIONAL INFORMATION This test was developed and its performance characteristics determined by [facility] in a manner consistent with CLIA requirements. This test has not been cleared or approved by the U.S. Food and Drug Administration. Test Performed by: [facility] [address] [place] [address] 28 RESULT: Polyclonal hypergammaglobulinemia Test Performed by: [facility] - [facility] [address] [place] [address] 29 Test Performed by: [facility] - [address] [address] 30 Negative for cANCA and pANCA patterns by immunofluorescence. ADDITIONAL INFORMATION This test was developed and its performance characteristics determined by [facility] in a manner consistent with CLIA requirements. This test has not been cleared or approved by the U.S. Food and Drug Administration. Test Performed by: [facility] - [address] [address] 31 REFERENCE VALUE <1.0 (Negative) 32 REFERENCE VALUE <1.0 (Negative) Test Performed by: [facility] - [address] [address] 33 Therapeutic target for the treatment of diabetes mellitus patients is <7% HBA1C, and in selective patients <6.0%. Please refer to [employer] diabetic care guidelines for further information. 34 Because ethnic data is not always readily [...] 15-29 5 Kidney failure <15 (or dialysis) 35 FASTING 10 HOUR 36 Desirable <150 Borderline high 150-199 High 200-499 Very High >500 37 Desirable <200 Borderline high 200-239 High >239 38 Low <40 Desirable: 40-60 High: >60 39 Desirable: <100 mg/dL Near Optimal: 100-129 mg/dL Borderline High: 130-159 mg/dL High: 160-189 mg/dL Very High: >189 mg/dL 40 SEE RESULT BELOW Name: ISABELMARYSOL : [address]: Ilya Lipscomb MD Acct: [id number] Unit: [id number] AGE: 66 Location: [place] Re02/14/17 SEX: F Status[place] [facility] [place]C: [id number] MICKIE: 02/14/17- [facility] DR: Ilya Lipscomb MD REQ: [id number] RECD: 02/14/171358 STATUS: SOUT _ ORDERED: LEVEL 4 There [...] fibrous tissue fragments admixed with yellow fat. Corporate Librarian sections, one cassette. Signed (signature on file) Roxie Meza MD 05/22 1604 END OF REPORT * ML=Testing performed at Main Lab DEPARTMENT OF PATHOLOGY, [address] [place] [address] Marco A Novak M.D. Director [facility] # [id number] 41 SEE RESULT BELOW Name: MARYSOL ISABEL : [address]: Ilya Lipscomb MD Acct: [id number] Unit: [id number] AGE: 66 Location: OR Re02/14/17 SEX: F Status: DEP SDC SPEC: [id number] MICKIE: 02/14/17- SUBM DR: Ilya Lipscomb MD REQ: [id number] RECD: 02/14/171358 STATUS: SOUT _ ORDERED: HARLEY CONSULT, LEVEL [address] Hubert Bateman at [facility], [place], [place], outside accession number [id number], our surgical [id number] reported on 04/18/17 and received on . Original consultation report scanned into Pathology Consults. Final Diagnosis: Left ankle synovium, excision ([id number]; 02/14/2017): Synovium with marked plasmacytosis, most likely representing autoimmune disorder, such as rheumatoid arthritis. Addendum Signed (signature on file) Marco A Nvoak MD 1558 There is no evidence of [...] performed at Main Lab DEPARTMENT OF PATHOLOGY, [address] [place] [address] Marco A Novak M.D. Director [facility] # [id number] RUN DATE: 04/27/17 [facility] LAB LIVE PAGE 2 Patient: MARYSOL ISABEL [id number] (Continued) GROSS DESCRIPTION (Continued) GROSS DESCRIPTION The specimen is received in formalin labeled, Left Ankle Synovium, and consists of a 5.0 x 3.9 by up to 1.6 cm aggregate of hancock-pink irregular rubbery fibrous tissue fragments admixed with yellow fat. Corporate Librarian sections, one cassette. Signed (signature on file) Roxie Meza MD 05/22 1604 END OF REPORT * ML=Testing performed at Main Lab DEPARTMENT OF PATHOLOGY, [address] [place] [address] Marco A Novak M.D. Director [facility] # [id number] 42 DEEPER LEFT ANKLE 43 SEE RESULT BELOW Name: MARYSOL ISABEL : [address]: Ilya Lipscomb MD Acct: [id number] Unit: [id number] AGE: 66 Location: OR Re02/14/17 SEX: F Status: AGUSTIN VASQUESC SPEC: [id number] MICKIE: 02/14/17-[address] [facility] [address]: Ilya Lipscomb MD REQ: [id number] RECD: 02/14/17 STATUS: RES SHAILESH DR: Carin Primary Care Phys,NOP _ SOURCE: WOUND SPDESC:ANKLE LEFT ORDERED: Anaerobic Cult, Culture Stain COMMENTS: DEEPER LEFT ANKLE Procedure Result Reported Site Anaerobic Culture PENDING Wound/Misc Gram Stain Final 02/14/17- 1435 ML 3+ Neutrophils 1+ Epithelial Cells No Organisms Seen Wound/Misc Culture PENDING * ML - MAIN LAB (PSC1) . END OF REPORT * ML=Testing performed at Main Lab DEPARTMENT OF PATHOLOGY, [address] [place] [address] Marco A Novak M.D. Director [facility] # [id number] 44 SEE RESULT BELOW Name: MARYSOL ISABEL : [address]: Ilya Lipscomb MD Acct: [id number] Unit: [id number] AGE: 66 Location: OR Re02/14/17 SEX: F Status: DEP SDC SPEC: [id number] MICKIE: 02/14/17-[address] [facility] [address]: Ilya Lipscomb MD REQ: [id number] RECD: 02/14/17 STATUS: PIEDAD CASH DR: Carin Primary Care Phys,NOP _ [...] performed at Main Lab DEPARTMENT OF PATHOLOGY, [address] [place] [address] Marco A Novak M.D. Director [facility] # [id number] 45 SEE RESULT BELOW Name: MARYSOL ISABEL : [address]: Ilya Lipscomb MD Acct: [id number] Unit: [id number] AGE: 66 Location: OR Re02/14/17 SEX: F Status: DEP SDC SPEC: [id number] MICKIE: 02/14/17-[address] [facility] [address]: Ilya Lipscomb MD REQ: [id number] RECD: 02/14/178072 STATUS: RES OTHR DR: No Primary Care Phys,NOPCP _ SOURCE: WOUND SPDESC:ANKLE LEFT ORDERED: Anaerobic Cult, Culture Stain Procedure Result Reported Site Anaerobic Culture PENDING Wound/Misc Gram Stain Final 02/14/17- 1436 ML 1+ Neutrophils 1+ Epithelial Cells No Organisms Seen Wound/Misc Culture PENDING * ML - MAIN LAB (PSC1) . END OF REPORT * ML=Testing performed at Main Lab DEPARTMENT OF PATHOLOGY, [address] [place] [address] Marco A Novak M.D. Director [facility] # [id number] 46 SEE RESULT BELOW Name: MARYSOL ISABEL : [address]: Ilya Lipscomb MD Acct: [id number] Unit: [id number] AGE: 66 Location: OR Re02/14/17 SEX: F Status: DEP SDC SPEC: [id number] MICKIE: 02/14/[address] [facility] [address]: Ilya Lipscomb MD REQ: [id number] RECD: 02/14/17 STATUS: PIEDAD CASH DR: Carin [...] Day 4 * ML - MAIN LAB ([facility]) . END OF REPORT * ML=Testing performed at Main Lab DEPARTMENT OF PATHOLOGY, [address] [place] [address] Marco A Novak M.D. Director [facility] # [id number] 47 Testing And Regulating Chief: [id number] Test Performed by: [address] [address] 49 Acute inflammation: >10.00 50 <1:80 (Negative) REFERENCE VALUE <1:80 (Negative) Test Performed by: [address] [address] Procedures Date CPT Code Description Status Comment 11/28/2017 Bone Mineral Density Test Completed 04/14/2017 Mammogram Completed 02/14/2017 14786 Tenolysis Flexor Or Extensor Completed Tendon Leg Or Ankle 02/14/2017 66591 Tenolysis Flexor Or Extensor Completed Tendon Leg Or Ankle 02/08/2017 85309 Inject/Drain Joint/Bursa Completed Intermediate W/O US 06/06/2014 Colonoscopy Completed Per pt., in [facility] Encounters Type Date Location Provider CPT E/M Dx Office Visit 01/23/2018 [facility] [place] [address] M65.872 2:00p C.M.A. Office Visit 12/06/2017 [facility] Dre Jimenez [address] M65.872 2:40p Of Deniz Mejia R70.0 R79.82 Z79.899 M81.0 Office Visit 11/16/2017 10:40a [facility] [place] [address] E78.5 [place] I10 F41.9 M25.472 M89.8x8 Z23 Office Visit 05/19/2017 11:00a [facility] Ilya Lipscomb, [address] M65.872 C.MJose M Crouch. Office Visit 05/10/2017 4:20p [facility] Dre [place], [address] M65.872 Of [facility] M.DFigueroa M25.472 R70.0 R79.82 Z79.899 Office Visit 04/07/2017 1:00p [facility] Dre [place], [address] M65.872 Of [facility] M.DFigueroa M25.472 R70.0 R79.82 Z79.899 Office Visit 03/09/2017 2:20p [facility] [place] [address] I10 [place] E78.5 E89.0 J30.9 R73.01 Office Visit 02/11/2017 1:15p [facility] Lipscomb, [address] M65.872 Raúl.MJose M Mejia Office Visit 02/08/2017 11:00a [facility] Lipscomb, [address] M65.872 C.M.Patricia Mejia M25.472 Plan of Care Future Appointment(s):02/21/2018 4:20 pm - Dre Jimenez M.D. at [facility]02/20/2018 10:40 am - Amadou Dubois NP at [facility] [place]02/14/2018 - Dre Jimenez M.D.M65.872 Other synovitis and tenosynovitis, left ankle and footFollow up:Follow up in 1 week or sooner if insuptA29.82 Elevated C-reactive protein (CRP)M81.0 Age-related osteoporosis w/ o current pathological fractureComments:I discussed with the patient that bisphosphonates are used to reduce fracture risk in osteoporosis. They work by reducing bone loss, which results in a net gain of bone mineral density. Clinical trial data have shown benefits of taking bisphosphonates for five years. However, the optimal treatment duration remains unknown and there have been concerns over the long-term impact of bisphosphonate use onbone quality.It is thought that, in some cases, prolonged use of bisphosphonates may lead to a substantial reduction in bone remodelling and the development of micro-cracks and increased bone fragility, resulting in atypical fractures. Therefore we may temporarily stop the bisphosphanate after its use for 5 years; the patient expressed understanding.Z79.899 Other truck terminal manager (current) drug [id number] Encounter for immunization
--- OUTSIDE RECORDS SUMMARY | 2018-02-21 12:34 | XMS REPORT ---
:1950 External Reference #:[id number] Author Organization [employer] Address [address] [place] [address] Phone [phone] Care Team Providers Name Role Phone Ivonne Stahl MD Primary Care Physician Unavailable Payers Type Date Identification Numbers Payment Provider Subscriber Commercial Policy Number: [id number] [employer] Shawna Harrison PayID: [id number] [address] [address] [place] [address] Problems Date Description Provider Status Onset: 03/14/2017 [...] 12 hours on ts 12 hours Silvino, NIGHT TIME NANNY off to affected area as needed Alprazolam 12/01 Active Tablets 0.5mg 20tab 1 tablet s twice daily Silvino, NIGHT TIME NANNY as needed, anxiety Sulfasalazine 11/16 Active Tablets 500mg 120ta take two bs tablets by Tony, mouth twice M.D. a day Escitalopram 11/16 Active Tablets 5mg 90tab 1 by mouth F41.9 Amadou Oxalate s every day Silvino, NIGHT TIME NANNY Acetaminophen-Code 11/16 Active Tablets 300-30mg 30tab 1-2 tablets M25.472 Amadou ine # s every 8 Silvino, NIGHT TIME NANNY hours (mdd acetominoph en 4g) Rollator Walker 03/22 Active Misc M65.872 Jackie Lipscomb Accu-Chek Compact 03/14 Active Kit 1unit test twice R73.01 Amadou Plus Care Kit /2016 s daily and Silvino, NIGHT TIME NANNY as needed Accu-Chek Compact 03/14 Active Strips 102un test twice Amadou Plus its daily and Silvino, NIGHT TIME NANNY as needed Blood Glucose Test 03/09 Active Strips 60uni check blood R73.01 ts glucose 1-2 Silvino, NIGHT TIME NANNY times daily Vitamin D-3 00 Active Capsules 1000Unit 2 by mouth Unknown /0000 every day [place] 3 Active Capsules 1 tab by Unknown /0000 mouth every day Acetaminophen 00 Active Tablets 325mg prn Unknown /0000 Hydroxychloroquine Active Tablets 200mg take one Unknown Sulfate /0000 tablet by mouth twice a day Plaquenil 05/10 Hx Tablets 200mg 360ta 1 by mouth M25.472 bs every day Long Jimenez for 1 week M.D. 11/16 then 2 by mouth daily ongoing Knee Scooter 03/22 Hx M65.872 Long Lipscomb M.D. 05/18 Losartan Potassium 03/09 Hx Tablets 25mg 90tab 1 by mouth Amadou s every day DARI Dubois - 02/13 Oxycodone HCL 02/14 Hx Tablets 5mg 40tab 1-2 tabs by Ilya s mouth every Long Lipscomb 4-6 hours M.D. 03/06 as needed Lexapro 00 Hx Tablets 5mg 1 by mouth Unknown [...] Hx Tablets 100mg Unknown /0000 - 05/18 Azulfidine En-Tabs Hx Tablets 500mg take one Amadou /0000 DR tablet by DARI Dubois - mouth twice 11/16 a Immunizations CPT Code Status Date Vaccine Reaction Lot # [id number] Given 11/16/2017 Pneumococcal Conjugate No immediate [id number] Vaccine 13 Valent For reaction..jh Intramuscular Use Vital Signs Date Vital Result Comment 02/13/2018 Height 62 inches 5'2" pt stated [...] By Ifa Igg <1:80 (Negative) 50 1 [facility] Severe Sepsis and Septic Shock Management Bundle [...] (or dialysis) 3 Result TnIDx:0.07 Called to [id number] at: 08:12:03 by:[id number] Read back by: [id number] CORRECTED REPORT --- Corrected on 02/10/18 1114 --- Troponin I previously reported as: 0.07 *C ng/mL Result TnIDx:0.07 Called to [id number] at: 08:12:03 by:[id number] Read back by: [id number] Please note: The following may produce [...] Kidney failure <15 (or dialysis) 10 RESULT: : REFERENCE VALUE Not Applicable 11 RESULT: :,06:02 DQ Serologic Equivalent: 8,6 REFERENCE VALUE Not [...] medium resolution molecular values. Performing Laboratory CLIA# [id number] Test Performed by: [address] [address] REFERENCE VALUE <4.0 (Negative) Test Performed by: [address] [address] 14 Negative serology. Celiac disease unlikely. However, approximately 10% of patients with celiac disease are seronegative. Also, patients who are already adhering to a gluten-free diet may be seronegative. If celiac disease is highly clinically suspected, consider HLA-DQ typing. Test Performed by: [address] [address] 15 ADDITIONAL INFORMATION This test was developed and its performance characteristics determined by [facility] in a manner consistent with CLIA requirements. This test has not been cleared or approved by the U.S. Food and Drug Administration. Test Performed by: [facility] - [facility] [address] [place] [address] 16 RESULT: Polyclonal hypergammaglobulinemia Test Performed by: [address] [address] 17 Because ethnic data is not always [...] REFERENCE VALUE <20.0 (Negative) Test Performed by: [address] [address] 22 REFERENCE VALUE Not Applicable 23 RESULT: HLA-B27 antigen was not detected. ADDITIONAL INFORMATION Method: Flow Cytometry Performing Laboratory CLIA# [id number] Test Performed by: [facility] - [address] [address] 24 ADDITIONAL INFORMATION This test was developed and its performance characteristics determined by [facility] in a manner consistent with CLIA requirements. This test has not been cleared or approved by the U.S. Food and Drug Administration. 25 ADDITIONAL INFORMATION This test was developed and its performance characteristics determined by [facility] in a manner consistent with CLIA requirements. This test has not been cleared or approved by the U.S. Food and Drug Administration. 26 ADDITIONAL INFORMATION This test was developed and its performance characteristics determined by [facility] in a manner consistent with CLIA requirements. This test has not been cleared or approved by the U.S. Food and Drug Administration. Test Performed by: [facility] - [address] [address] 27 ADDITIONAL INFORMATION This test was developed and its performance characteristics determined by [facility] in a manner consistent with CLIA requirements. This test has not been cleared or approved by the U.S. Food and Drug Administration. Test Performed by: [facility] - [address] [place] [address] 28 RESULT: Polyclonal hypergammaglobulinemia Test Performed by: [facility] - [address] [address] Test Performed by: [facility] - [address] [address] 30 Negative for cANCA and pANCA patterns by immunofluorescence. ADDITIONAL INFORMATION This test was developed and its performance characteristics determined by [facility] in a manner consistent with CLIA requirements. This test has not been cleared or approved by the U.S. Food and Drug Administration. Test Performed by: [facility] - [address] [address] 31 REFERENCE VALUE <1.0 (Negative) 32 REFERENCE VALUE <1.0 (Negative) Test Performed by: [facility] - [address] [address] 33 Therapeutic target for the treatment of diabetes mellitus patients is <7% HBA1C, and in selective patients <6.0%. Please refer to [place] [employer] Association diabetic care guidelines for further [...] >189 mg/dL 40 SEE RESULT BELOW Name: MARYSOL ISABEL : [address]: Ilya Lipscomb MD Acct: [id number] Unit: [id number] AGE: 66 Location: OR Re02/14/17 SEX: F Status: DEP [facility] SPEC: [id number] MICKIE: 02/14/17- [facility] DR: Ilya Lipscomb MD REQ: [id number] RECD: 02/14/17-0741 STATUS: SOUT _ ORDERED: LEVEL 4 There [...] fibrous tissue fragments admixed with yellow fat. Production Control Supervisor sections, one cassette. Signed (signature on file) Roxie Meza MD 05/22 1604 END OF REPORT * ML=Testing performed at Main Lab DEPARTMENT OF PATHOLOGY, [address] [place] [address] Marco A Novak M.D. Director [facility] # [id number] 41 SEE RESULT BELOW Name: MARYSOL ISABEL : [address]: Ilya Lipscomb MD Acct: [id number] Unit: [id number] AGE: 66 Location: OR Re02/14/17 SEX: F Status: DEP SDC SPEC: [id number] MICKIE: 02/14/17- JOS DR: Ilya Lipscomb MD REQ: [id number] RECD: 02/14/171358 STATUS: SOUT _ ORDERED: HARLEY CONSULT, LEVEL [address] Hubert Bateman at [facility], [place], [place], outside accession number [id number], our surgical [id number] reported on 04/18/17 and received on . Original consultation report scanned into Pathology Consults. Final Diagnosis: Left ankle synovium, excision ([id number]; 02/14/2017): Synovium with marked plasmacytosis, most likely [...] performed at Main Lab DEPARTMENT OF PATHOLOGY, [address] [place] [address] Marco A Novak M.D. Director [facility] # [id number] RUN DATE: 04/27/17 [facility] LAB LIVE PAGE 2 Patient: LARAMARYSOL [id number] (Continued) GROSS DESCRIPTION (Continued) GROSS DESCRIPTION The specimen is received in formalin labeled, Left Ankle Synovium, and consists of a 5.0 x 3.9 by up to 1.6 cm aggregate of hancock-pink irregular rubbery fibrous tissue fragments admixed with yellow fat. Production Control Supervisor sections, one cassette. Signed (signature on file) Roxie Meza MD 05/22 1604 END OF REPORT * ML=Testing performed at Main Lab DEPARTMENT OF PATHOLOGY, [address] [place] [address] Marco A Novak M.D. Director [facility] # [id number] 42 DEEPER LEFT ANKLE 43 SEE RESULT BELOW Name: MARYSOL ISABEL : [address]: Ilya Lipscomb MD Acct: [id number] Unit: [id number] AGE: 66 Location: OR Re02/14/17 SEX: F Status: AGUSTIN SDC SPEC: [id number] MICKIE: 02/14/17-[address] [facility] [address]: Ilya Lipscomb MD REQ: [id number] RECD: 02/14/17005 STATUS: MITALI CASH DR: Carin Primary Care Phys,NOPCP _ [...] performed at Main Lab DEPARTMENT OF PATHOLOGY, [address] [place] [address] Marco A Novak M.D. Director [facility] # [id number] 44 SEE RESULT BELOW Name: MARYSOL ISABEL : [address]: Ilya Lipscomb MD Acct: [id number] Unit: [id number] AGE: 66 Location: OR Re02/14/17 SEX: F Status: DEP SDC SPEC: [id number] MICKIE: 02/14/17-[address] [facility] [address]: Ilya Lipscomb MD REQ: [id number] RECD: 02/14/17 STATUS: PIEDAD CASH DR: No Primary Care Phys,NOPCP _ SOURCE: WOUND SPDESC:ANKLE LEFT ORDERED: Anaerobic Cult, Culture Stain COMMENTS: DEEPER LEFT ANKLE Procedure Result Reported Site Anaerobic Culture Final 02/18/17- 48 ML No Growth Day 4 Wound/Misc Gram Stain Final 02/14/17- 1435 ML 3+ Neutrophils 1+ Epithelial Cells No Organisms Seen Wound/Misc Culture Final 02/18/17- 48 ML No Growth Day 4 * ML - MAIN LAB (PSC1) . END OF REPORT * ML=Testing performed at Main Lab DEPARTMENT OF PATHOLOGY, [address] [place] [address] Marco A Nvoak M.D. Director [facility] # [id number] 45 SEE RESULT BELOW Name: ISABELMARYSOL : [address]: Ilya Lipscomb MD Acct: [id number] Unit: [id number] AGE: 66 Location: OR Re02/14/17 SEX: F Status: DEP SDC SPEC: [id number] MICKIE: 02/14/17-[address] [facility] [address]: Ilya Lipscomb MD REQ: [id number] RECD: 02/14/170004 STATUS: RES SHAILESH DR: Carin Primary Care Phys,NOPCP _ SOURCE: WOUND SPDESC:ANKLE LEFT ORDERED: Anaerobic Cult, Culture Stain Procedure Result Reported Site Anaerobic Culture PENDING Wound/Misc Gram Stain Final 02/14/17- 1436 ML 1+ Neutrophils 1+ Epithelial Cells No Organisms Seen Wound/Misc Culture PENDING * ML - MAIN LAB (PSC1) . END OF REPORT * ML=Testing performed at Main Lab DEPARTMENT OF PATHOLOGY, [address] [place] [address] Marco A Novak M.D. Director [facility] # [id number] 46 SEE RESULT BELOW Name: MARYSOL ISABEL : [address]: Ilya Lipscomb MD Acct: [id number] Unit: [id number] AGE: 66 Location: OR Re02/14/17 SEX: F Status: DEP SDC SPEC: [id number] MICKIE: 02/14/17-[address] [facility] [address]: Ilya Lipscomb MD REQ: [id number] RECD: 02/14/17 STATUS: PIEDAD CASH DR: Carin [...] Day 4 * ML - MAIN LAB ([facility]) . END OF REPORT * ML=Testing performed at Main Lab DEPARTMENT OF PATHOLOGY, [address] [place] [address] Marco A Novak M.D. Director [facility] # [id number] 47 Portfolio Strategist: [id number] Test Performed by: [facility] [address] [place] [address] 49 Acute inflammation: >10.00 50 <1:80 (Negative) REFERENCE VALUE <1:80 (Negative) Test Performed by: [facility] [address] [place] [address] Procedures Date CPT Code Description Status Comment 11/28/2017 Bone Mineral Density Test Completed 04/14/2017 Mammogram Completed 02/14/2017 97887 Tenolysis Flexor Or Extensor Completed Tendon Leg Or Ankle 02/14/2017 37298 Tenolysis Flexor Or Extensor Completed Tendon Leg Or Ankle 02/08/2017 51816 Inject/Drain Joint/Bursa Completed Intermediate W/O US 06/06/2014 Colonoscopy Completed Per pt., in [facility] Encounters Type Date Location Provider CPT E/M Dx Office Visit 01/23/2018 [facility] [place] [address] M65.872 2:00p C.M.AFigueroa Office Visit 12/06/2017 [facility] Dre Jimenez [address] M65.872 2:40p Of Deniz Mejia R70.0 R79.82 Z79.899 M81.0 Office Visit 11/16/2017 10:40a [facility] [place] [address] E78.5 [place] I10 F41.9 M25.472 M89.8x8 Z23 Office Visit 05/19/2017 11:00a [facility] Ilya Lipscomb [address] M65.872 C.M.Patricia Mejia Office Visit 05/10/2017 4:20p [facility] Dre Jimenez [address] M65.872 Of Deniz Mejia M25.472 R70.0 R79.82 Z79.899 Office Visit 04/07/2017 1:00p [facility] Dre Jimenez, [address] M65.872 Of [facility] Jackie M25.472 R70.0 R79.82 Z79.899 Office Visit 03/09/2017 2:20p [facility] [place] [address] I[address] [place] E78.5 E89.0 J30.9 R73.01 Office Visit 02/11/2017 1:15p [facility]lya Lipscomb, [address] M65.872 C.MJose M Mejia Office Visit 02/08/2017 11:00a [facility]a Lipscomb, [address] M65.872 C.M.AFigueroa Mejia M25.472 Plan of Care Future Appointment(s):02/14/2018 1:20 pm - Dre Jimenez M.D. at [facility]02/13/2018 - Amadou Dubois NPE78.5 Hyperlipidemia, unspecifiedComments:We should check your cholsterol levels again in April. Continue taking the Crestor.I10 Essential (primary) hypertensionComments:I have increased the Losartan as we discussed.Z68.28 Body mass index (BMI) 28.0-28.9, adultReferral:[facility], Roll Repairer
[2018-02-21 12:57] LABS: ABS Basophils 0.1 10^3/ul (0-0.2); ABS Eosinophils 0.1 10^3/ul (0-0.6); ABS Lymphocytes 2.5 10^3/ul (1.0-4.8); ABS Monocytes 0.5 10^3/ul (0-0.8); ABS Neutrophils 4.6 10^3/ul (1.5-7.7); ABS Nucleated RBC 0 10^3/ul; Eosinophil % 0.7 % (0-6); Hematocrit 36 % (35-47); Hemoglobin 12.4 g/dl (12.0-16.0); Lymphocyte % 32.6 % (25-47); Mean Corpuscular HGB Conc 35 g/dl (31-36); Mean Corpuscular Hemoglobin 30 pg (27-31); Mean Corpuscular Volume 85 fL (80-97); Mean Platelet Volume 8.8 um3 (7.4-10.4); Nucleated Red Blood Cells % 0.1; Platelet Count 262 10^3/ul (150-450); Red Blood Count 4.19 10^6/ul (4.00-5.40); Red Cell Distribution Width 15 % (10.5-15); White Blood Count 7.8 10^3/ul (3.5-10.8)
--- NOTE | 2018-02-21 12:58 | ED ---
HPI Chest Pain - HPI Summary HPI Summary: Patient is a 67 y/o F w/ c/o of chest "burning" onsetting this morning around 0300. Chest pain radiates into neck and down left arm. Sx lasted for a few hours , resolved and patient reports that she is currently asymptomatic. Patient denies SOB, N/V/D, fevers. She was admitted to [facility] a week ago for similar Sx. A stress test was done which showed intermediate risk for the patient. No cardiology follow up was done. Hx of gastritis, anxiety, HTN, and arthritis is reported. On triage, pain is rated 10/10, nothing is noted to aggravate/ alleviate Sx. Home medications and allergies are reviewed. - History of Current Complaint Chief Complaint: EDChestPainROMI Time Seen by Provider: 02/21/18 12:30 Hx Obtained From: Patient Onset/Duration: Started Hours Ago - onset 0300 today, Resolved Timing: Lasting Hours - lasted a few hours and resolved Initial Severity: Severe - 10/10 on triage Current Severity: None - in room, denies the presence of pain Pain Intensity: 10 Pain Scale Used: 0-10 Numeric - 10/10 on triage, but in the room patient notes that she is not currently experiencing pain Chest Pain Location: Diffuse Chest Pain Radiates: Yes Chest Pain Radiates To:: Arm - left arm, Neck Character: Burning Aggravating Factor(s): Nothing Alleviating Factor(s): Nothing Associated Signs and Symptoms: Positive: Chest Pain, Other: - NEGATIVE: diarrhea. Negative: Shortness of Breath, Fever, Nausea, Vomiting - Allergy/Home Medications Allergies/Adverse Reactions: Allergies Allergy/AdvReac Type Severity Reaction Status Date / Time aspirin Allergy Anaphylatic Verified 02/21/18 13:07 Shock Home Medications: Home Medications Cholecalciferol TAB* [Vitamin D TAB*] 2,000 units PO DAILY 02/21/18 [History Confirmed 02/21/18] PMH/Surg Hx/FS Hx/Imm Hx Endocrine/Hematology History: Reports: Hx Thyroid Disease, Hx Anemia Denies: Hx Diabetes Cardiovascular History: Reports: Hx Angina, Hx Hypercholesterolemia, Hx Hypertension Denies: Hx Coronary Artery Disease, Hx Myocardial Infarction, Hx Pacemaker/ ICD, Hx Valvular Heart Disease, Other Cardiovascular Problems/Disorders Respiratory History: Denies: Hx Asthma, Hx Chronic Obstructive Pulmonary Disease (COPD), Other Respiratory Problems/Disorders GI History: Reports: Hx Ulcer Denies: Other GI Disorders History: Denies: Hx Renal Disease Musculoskeletal History: Reports: Hx Tendonitis Denies: Hx Osteoporosis Sensory History: Reports: Hx Contacts or Glasses Denies: Hx Hearing Aid Opthamlomology History: Reports: Hx Contacts or Glasses Neurological History: Denies: Other Neuro Impairments/Disorders Psychiatric History: Reports: Hx Anxiety - on meds, Hx Depression - at times Denies: Hx Panic Disorder - Surgical History Surgery Procedure, Year, and Place: L knee surgery, 2011, [facility]. thyroid surgery. hysterectomy, 2006, [facility]. LEFT FOOT BIOPSY-[facility] Hx Anesthesia Reactions: No Infectious Disease History: No Infectious Disease History: Denies: Hx Clostridium Difficile, Hx Hepatitis, Hx Human Immunodeficiency Virus (HIV), Hx of Known/Suspected MRSA, Hx Shingles, Hx Tuberculosis, Hx Known/ Suspected VRE, Hx Known/Suspected VRSA, History Other Infectious Disease, Traveled Outside the in Last 30 Days - Family History Known Family History: Positive: Cardiac Disease - Valvular heart disease, Hypertension, Other - CVA - Social History Alcohol Use: Occasionally Alcohol Amount: social Hx Substance Use: No Substance Use Type: Reports: None Hx Tobacco Use: Yes Smoking Status (MU): Former Smoker Type: Cigarettes Amount Used/How Often: 1/2 pack a day for 10 years Have You Smoked in the Last Year: No Review of Systems Negative: Fever Positive: Chest Pain - radiates to left arm and neck Negative: Shortness Of Breath Negative: Vomiting, Diarrhea, Nausea All Other Systems Reviewed And Are Negative: Yes Physical Exam - Summary Physical Exam Summary: VITAL SIGNS: Reviewed. GENERAL: Patient is a well-developed and nourished female who is lying comfortable in the stretcher. Patient is not in any acute respiratory distress. HEAD AND FACE: No signs of trauma. No ecchymosis, hematomas or skull depressions. No sinus tenderness. EYES: PERRLA, EOMI x 2, No injected conjunctiva, no nystagmus. EARS: Hearing grossly intact. Ear canals and tympanic membranes are within normal limits. MOUTH: Oropharynx within normal limits. NECK: Supple, trachea is midline, no adenopathy, no JVD, no carotid bruit, no c- spine tenderness, neck with full ROM. CHEST: Symmetric, no tenderness at palpation LUNGS: Clear to auscultation bilaterally. No wheezing or crackles. CVS: Regular rate and rhythm, S1 and S2 present, no murmurs or gallops appreciated. ABDOMEN: Soft, non-tender. No signs of distention. No rebound no guarding, and no masses palpated. Bowel sounds are normal. EXTREMITIES: FROM in all major joints, no edema, no cyanosis or clubbing. NEURO: Alert and oriented x 3. No acute neurological deficits. Speech is normal and follows commands. SKIN: Dry and warm Triage Information Reviewed: Yes Vital Signs On Initial Exam: Initial Vitals Temp Pulse Resp BP Pulse Ox 97.8 F 69 18 146/79 99 02/21/18 12:10 02/21/18 12:10 02/21/18 12:10 02/21/18 12:10 02/21/18 12:10 Vital Signs Reviewed: Yes Diagnostics - Vital Signs Vital Signs Temp Pulse Resp BP Pulse Ox 02/21/18 12:10 97.8 F 69 18 146/79 99 - Laboratory Lab Results: Lab Results 02/21/18 Range/Units 12:49 WBC 7.8 (3.5-10.8) 10^3/ul RBC 4.19 (4.00-5.40) 10^6/ul Hgb 12.4 (12.0-16.0) g/dl Hct 36 (35-47) % MCV 85 (80-97) fL MCH 30 (27-31) pg MCHC 35 (31-36) g/dl RDW 15 (10.5-15) % Plt Count 262 (150-450) 10^3/ul MPV 8.8 (7.4-10.4) um3 Neut % (Auto) 59.0 (38-83) % Lymph % (Auto) 32.6 (25-47) % [place]enton % (Auto) 6.7 (0-7) % Eos % (Auto) 0.7 (0-6) % Baso % (Auto) 1.0 (0-2) % Absolute Neuts (auto) 4.6 (1.5-7.7) 10^3/ul Absolute Lymphs (auto) 2.5 (1.0-4.8) 10^3/ul Absolute Monos (auto) 0.5 (0-0.8) 10^3/ul Absolute Eos (auto) 0.1 (0-0.6) 10^3/ul Absolute Basos (auto) 0.1 (0-0.2) 10^3/ul Absolute Nucleated RBC 0 10^3/ul Nucleated RBC % 0.1 Result Diagrams: 02/21/18 12:49 02/21/18 15:03 Lab Statement: Any lab studies that have been ordered have been reviewed, and results considered in the medical decision making process. - Radiology CXR Xray Interpretation: No Acute Changes Radiology Interpretation Completed By: Radiologist - no acute intrathoracic disease; this report was reviewed by ed physician. - EKG 1224 Cardiac Rate: NL - rate of 69 BPM EKG Rhythm: Sinus Rhythm EKG Interpretation: no ST elevation EKG Comparison: No Significant Change - EKG is similar to one taken on 02/10/18 Re-Evaluation - Re-Evaluation First Eval Re-Evaluation Time: 14:53 Change: Worse Comment: Patient began to experience burning chest pain again; patient will be given GI cocktail Second Eval Re-Evaluation Time: 15:56 Change: Improved Comment: Patient's chest pain has lessened after GI cocktail Third Eval Re-Evaluation Time: 16:46 Change: Unchanged Comment: Patient informed of decision to admit to [facility]. She understands and is agreeable with this plan. Chest Pain Course/Dx - Course Assessment/Plan: This patient is a 67-year-old female who presents to the emergency department with a chief complaint of having burning sensation from the chest with radiation to the neck and left arm. In the room, she reports no chest pain. Patient has history of gastritis and also she has history of arthritis. She reports that she was admitted for the same symptoms last week for which the patient that I am a stress test within intermediate risk. At that point he was not recommend cardiology follow-up. Blood work without any significant abnormality except for sodium level of 123, glucose 127, CPK of 7. Chest x-ray impression: No evidence for acute intrathoracic disease. The patient was given a GI cocktail since the patient reports that she began to experience the burning pain at the center of the chest once more. GI cocktail helped alleviate Sx. The troponin is negative. EKG shows no ST elevations. CXR was negative. I discussed my physical exam, findings and test results with Dr. Benedict from the hospital services who accepted the patient for admission. The patient is hemodynamically stable alert and oriented 3. - Chest Pain Differential Diagnosis/HQI/PQRI: Acute OR, ACS, Angina, CHF, Chest Wall, GI Disease, Lower Respiratory Infection - Diagnoses Provider Diagnoses: Hyponatremia, Atypical chest pain - Provider Notifications Discussed Care Of Patient With: Felicia Benedict Time Discussed With Above Provider: 16:43 Instructed by Provider To: Other - Patient's case was discussed with Dr. Benedict [place] 1643. Dr. Benedict accepts patient for admission to [facility]. Discharge - Sign-Out/Discharge Documenting (check all that apply): Patient Departure - admit - Discharge Plan Condition: Good Disposition: ADMITTED TO [facility] - Billing Disposition and Condition Condition: GOOD Disposition: Admitted to [facility] - Attestation Statements Document Initiated by Matiasibe: Yes Documenting Scribe: Etienne Davies Provider For Whom Scribe is Documenting (Include Credential): Valente Montero MD Scribe Attestation: IEtienne , scribed for Valente Montero MD on 02/21/18 at 1848. Scribe Documentation Reviewed: Yes Provider Attestation: The documentation as recorded by the Etienne long accurately reflects the service I personally performed and the decisions made by me, Valente Montero MD
[2018-02-21 13:06] LABS: INR 1.06 (0.77-1.02)
--- NOTE | 2018-02-21 13:12 | RAD ---
Indication: Chest pain with radiation to the neck and LEFT arm. Hypertension. Tobacco use. Comparison: February 10, 2018 nuclear cardiac stress test. February 10, 2018 chest radiograph. Technique: Upright AP 1250 hours Report: No focal pulmonary lesion, compelling alveolar consolidation, pleural effusion, pneumothorax. Upper normal heart size. Unremarkable central pulmonary vasculature and mediastinal contours. IMPRESSION: #. No evidence for acute intrathoracic disease.
[2018-02-21 13:13] LABS: EGFR Non-African American 102.3 (>60)
[2018-02-21] MEDS ORDERED: NS 0.9% 1000 ML*IV.FLUID IV ONE (14:34)
[2018-02-21] MEDS ORDERED: Al Hydrox/Mg Hydrox/Simet LIQ* 30 ML UDC PO ONE (14:58)
[2018-02-21] MEDS ORDERED: Lidocaine 2% VISCOUS* 15 ML UDC PO ONE (14:58)
[2018-02-21 15:28] LABS: EGFR Non-African American 123.8 (>60)
[2018-02-21] MEDS ORDERED: Omeprazole CAP* 20 MG PO ONE (16:11)
[2018-02-21] MEDS ORDERED: Calcium Carbonate CHEW TAB* 500 MG (TUMS) PO PRN (16:12)
[2018-02-21] MEDS ORDERED: Acetaminophen TAB* 325 MG PO PRN (16:12)
[2018-02-21] MEDS ORDERED: Omeprazole CAP* 20 MG PO SCH (16:30)
[2018-02-21] MEDS: NS 0.9% 1000 ML* 1,000 ML IV SCH (17:59)
[2018-02-21] MEDS: ALPRAZolam TAB* 0.25 MG PO PRN (19:33)
[2018-02-21] MEDS: Omeprazole CAP* 20 MG PO SCH (19:33)
[2018-02-21] MEDS: Heparin VIAL(*) 5000 UNITS/ML VIAL (FIVE THOUSAND) SUBCUT SCH (21:55)
[2018-02-21] MEDS: Al Hydrox/Mg Hydrox/Simet LIQ* 30 ML UDC PO PRN (21:56)
[2018-02-21] MEDS: sulfaSALAzine TAB* 500 MG PO SCH (21:56)
--- NOTE | 2018-02-21 21:57 | HP ---
CC: Dr. Ivonne Stahl; Dr. Jimenez; Dr. Bran; Dr. Carroll; Amadou Dubois NP * HISTORY AND PHYSICAL: DATE OF ADMISSION: 02/21/18 PRIMARY CARE PROVIDER: Ivonne Stahl MD CHIEF COMPLAINT: Feeling unwell, burning in the chest. HISTORY OF PRESENT ILLNESS: Cheryl Isabel is a 67-year-old female with a history of hypertension, dyslipidemia as well as tenosynovitis in the left ankle who was admitted by myself on 02/10/18 for chest pain rule out. She had a stress test on 02/11/18, which was negative apart from higher TID index. The results were discussed with the supervisor cook room on-call. The negative reversible ischemia in conjunction with negative troponins and unremarkable EKG were low probability for cardiac disease. At that point, the patient was discharged home to follow up with her primary care provider. The patient followed with her primary care provider yesterday on 02/20/18. She complained of burning in her chest, worse when lying down and wakening up in the middle of the night with burning in her chest. The patient was advised to follow gastroesophageal reflux precautions and recommendations including sleeping with her head of the bed elevated, not eating late dinners, avoiding spicy foods. The patient also was started on proton pump inhibitor. She apparently was just prescribed yesterday. She may have taken 1 pill of omeprazole and she comes into the hospital today complaining of feeling unwell again. She complains of feeling very anxious. She is planning to go to [facility] in 4 days since her one of her good friends is ill. That causes a significant amount of distress. Once again, she has not been eating well and she stated that she may have lost a pound in the past 1 week. The patient's sodium is 123 on presentation. She is going to be admitted with diagnosis of hyponatremia. PAST MEDICAL HISTORY: 1. Diabetes, diet controlled. 2. History of dyslipidemia. 3. Hypertension. 4. History of thyroid surgery many years ago in [facility]. 5. History of hysterectomy remotely. 6. History of left knee surgery. 7. History of left ankle tenosynovitis, under the care of Dr. Jimenez status post biopsies that showed inflammatory changes, but no specific diagnosis was given as per the patient. CURRENT MEDICATIONS: Include: 1. Vitamin D3 2000 units daily. 2. Xanax 0.25 mg on a p.r.n. basis. 3. Crestor 10 mg daily, just started a week ago. 4. Lexapro 5 mg daily. 5. Sulfasalazine 500 mg b.i.d. 6. Losartan 25 mg daily. 7. Folic acid 1 mg daily. 8. Ascorbic acid 500 mg daily. 9. Omeprazole 20 mg daily, just started yesterday. ALLERGIES: Include ASPIRIN. The patient had anaphylaxis to aspirin in the past. FAMILY HISTORY: Positive for father with history of CVA and mother with history of liver cancer. SOCIAL HISTORY: The patient denies any tobacco, alcohol, or drug use. She lives part of the year in [facility] and part of the year in [place]. She lives with her domestic partner female, Shawna Harrison, who is her surrogate. REVIEW OF SYSTEMS: Please see history of present illness. All the remaining 12 systems were reviewed and were otherwise negative. PHYSICAL EXAMINATION GENERAL: The patient is a very pleasant 67-year-old female, who is in no acute distress. Alert, awake, and oriented x3. VITAL SIGNS: Blood pressure of 142/84, heart rate of 60 and regular, respiratory rate 16, oxygen saturation 96% on room air, temperature of 97.8. HEENT: Head: Atraumatic, normocephalic. Eyes: Pupils are equal, reactive to light and accommodation. Oropharynx clear. Mucosa dry. NECK: Supple. No JVD. No bruits bilaterally. RESPIRATORY: Clear to auscultation bilaterally. CARDIOVASCULAR: Regular rate and rhythm. No murmur. ABDOMEN: Soft, nontender. Bowel sounds are present in all 4 quadrants. EXTREMITIES: The patient has bilateral ankle edema, left more than right. There is also left ankle tenderness to palpation. There is no erythema on the skin noted. There is no clubbing or cyanosis and pulses are +2 bilaterally. PSYCHIATRIC: On psychiatric evaluation, the patient appears mildly anxious with no evidence of depression. She is oriented x3. SKIN: On evaluation of the skin, no ecchymotic areas or rashes noted. LABORATORY DATA/DIAGNOSTIC STUDIES: Laboratory data showed white blood cell count of 7.8, hemoglobin of 12.4, hematocrit of 36, and platelets of 262. D-dimer was 200. It was checked on 02/20/18. Sodium of 124, potassium 3.9, chloride 94, carbon dioxide 23, BUN 5, creatinine 0.5. Liver function tests unremarkable. CPK was elevated at 410. Troponin is 0.0. C-reactive protein was 9.6. TSH was 1.03. Please note that the patient's sodium increased from 123 to 124 after a liter of intravenous fluids. The patient's EKG showed normal sinus rhythm with heart rate of 69 beats per minute with no ST changes. The patient's portable chest x-ray was read by the radiologist as "no evidence of acute intrathoracic disease." ASSESSMENT AND PLAN: 1. In regards to the patient's chest pain. It is likely GI/reflux related. The patient had tried just 1 pill of her proton pump inhibitor medication before coming back to the emergency department to be reevaluated after seeing her primary care provider yesterday. At this point, I will ask gastroenterology to evaluate the patient for possible upper endoscopy. The patient is going to be placed on n.p.o. in the morning for that reason. 2. In regards to the patient's intermediate probability cardiac stress test on 02/11/18 with high TID index. At this point, it appears that the patient's primary care provider requested outpatient cardiology consult after the patient 's hospital stay on 02/11/18. Due to that, I will ask Dr. Carroll to comment on the abnormalities in the patient's cardiac stress test. 3. In regards to the patient's dyslipidemia. The patient was placed on Crestor by primary care provider and her CPK is right now at 410. She is not feeling well. At this point, I will stop her Crestor. She may be able to restart another statin in a few weeks. 4. In regards to the patient's hyponatremia. It appears to be hypovolemic. The patient responded well to intravenous fluids. She is anxious and she has not been eating well. The Lexapro could cause hyponatremia. I will hold the patient's losartan for the time being and continue intravenous fluids. Urine sodium level is pending at the time of dictation. 5. For DVT prophylaxis, the patient is going to be placed on heparin subcutaneously. 6. For code status, the patient's code status is full. Her surrogate is her female partner, Shawna Harrison. TIME SPENT: Approximately 62 minutes were spent on admission of this patient, more than half that time was spent [id number] with the patient during the interview and physical exam. [id number]/[facility] #: [id number] STEPHANIE
[2018-02-21 22:20] LABS: EGFR Non-African American 106.4 (>60)
--- NOTE | 2018-02-22 00:42 | CONS ---
CC: Amadou Dubois NP at [facility] * CARDIOLOGY CONSULTATION: DATE OF CONSULT: 02/22/18 INDICATION FOR CONSULTATION: Chest pain. HISTORY OF PRESENT ILLNESS: The patient is a 67-year-old woman with a history of hypertension, hyperlipidemia who came to the hospital for chest pain. The patient was admitted to the hospital here on 02/10/18. At that time, she noted the onset of chest pain, it mostly occurred at night. She felt as though it is a burning in her upper chest and sometimes into her throat. Occasionally it happened during the day. It had happened 3 or 4 times before she had presented to the emergency room. Her most significant discomfort was rated above 5/10. In the emergency room, the patient ruled out for a myocardial infarction. Her EKG showed no ischemic EKG changes. The patient ultimately underwent a chemical nuclear stress test and an echocardiogram. The patient's stress test showed normal perfusion throughout the myocardium. She had a small cavity seen on images. LV function was normal, calculated at 83%. There was an elevated TID of 1.38. Her echocardiogram showed normal LV size and systolic function. No significant valvular abnormalities. The patient was discharged from the hospital on . The patient was seen yesterday by Amadou Dubois, nurse practitioner at [facility]. At that time, he thought that the elevated TID could be more significant and suggested the patient she follow up with cardiology. Last night, the patient was awoken by a noise in her room and then started noticing the same discomfort. The discomfort did not wake her up. She sort of felt a pressure on her chest that radiated up into her throat. The patient states that she had this symptom the rest of the morning, it lasted for approximately 5 hours and then decided to come to the emergency room. On arrival to the emergency room, again her EKG was unremarkable. Laboratory studies were unremarkable. Troponins were negative x2. PAST MEDICAL HISTORY: Significant for: 1. Hypertension. 2. Hyperlipidemia. PAST SURGICAL HISTORY: 1. Partial thyroidectomy. 2. Hysterectomy. 3. Knee surgery. OUTPATIENT MEDICATIONS: 1. Xanax 0.25 mg as needed. 2. Crestor 20 mg a day. 3. Sulfasalazine 500 mg b.i.d. 4. Lexapro 5 mg a day. 5. Losartan 50 mg a day. 6. Vitamin C 500 a day. ALLERGIES: To ASPIRIN, which causes breathing problems. FAMILY HISTORY: Father had a history of a CVA. SOCIAL HISTORY: She denies tobacco or alcohol use. She lives part of year in [facility]. REVIEW OF SYSTEMS: Negative for fevers and chills. Negative for changes in bowel or bladder habits. Negative for change in weight. Other 12-point review is unremarkable. PHYSICAL EXAM: Height is 5 feet, weight is 151 pounds. Temperature 98.3, heart rate is 56, blood pressure 144/80, respiratory rate is 18. Sclerae anicteric. Oropharynx is pink without erythema. Carotids are 2+ without bruits. JVD is normal. Thyroid is normal. Cardiac Exam: S1, S2 without any murmurs, rubs, or gallops. PMI is normal. Lungs are clear to auscultation bilaterally. There is no dullness to percussion. Abdomen is soft, nontender, nondistended with normoactive bowel sounds. Extremities show no edema. She has 2+ pulses throughout. The patient is awake and alert and oriented. She moves all 4 extremities equally. LABORATORY STUDIES: Sodium is low at 124, BUN 5, creatinine 0.5. Troponins are negative x2. Total CK is elevated at 1.0; however, CK-MB is negative. TSH 1.03. IMPRESSION: This is a 67-year-old female who is admitted to the hospital with atypical chest pain. The patient had undergone a chemical nuclear stress test last week, which showed normal perfusion throughout the myocardium. I have reviewed the images personally. The patient does have a small LV cavity, thus a small dilatation in the LV with stress would read out as a much larger TID. Overall, I do not think this is a clinically significant elevation of the TID. For now, my recommendation is to have the patient seen by gastroenterology for potential for other forms of chest pain. At this point, I do not think another workup is necessary. This case was discussed with Dr. Benedict. [id number]/[facility] #: [id number] STEPHANIE
[2018-02-22] MEDS: NS 0.9% 1000 ML* 1,000 ML IV SCH (00:46)
[2018-02-22] MEDS: Heparin VIAL(*) 5000 UNITS/ML VIAL (FIVE THOUSAND) SUBCUT SCH ×2 (05:15→14:39)
[2018-02-22 08:28] LABS: ABS Basophils 0.1 10^3/ul (0-0.2); ABS Eosinophils 0.1 10^3/ul (0-0.6); ABS Lymphocytes 2.7 10^3/ul (1.0-4.8); ABS Monocytes 0.6 10^3/ul (0-0.8); ABS Nucleated RBC 0 10^3/ul; Eosinophil % 0.7 % (0-6); Hematocrit 36 % (35-47); Hemoglobin 12.2 g/dl (12.0-16.0); Lymphocyte % 36.6 % (25-47); Mean Corpuscular HGB Conc 34 g/dl (31-36); Mean Corpuscular Hemoglobin 30 pg (27-31); Mean Corpuscular Volume 86 fL (80-97); Mean Platelet Volume 9.1 um3 (7.4-10.4); Nucleated Red Blood Cells % 0.1; Platelet Count 257 10^3/ul (150-450); Red Blood Count 4.11 10^6/ul (4.00-5.40); Red Cell Distribution Width 14 % (10.5-15); White Blood Count 7.4 10^3/ul (3.5-10.8)
[2018-02-22 08:43] LABS: EGFR Non-African American 102.3 (>60)
[2018-02-22] MEDS ORDERED: Folic Acid TAB* 1 MG PO SCH (09:00)
[2018-02-22] MEDS ORDERED: LORazepam INJ* 2 MG/ML 1 ML VIAL IV PUSH ONE (09:44)
[2018-02-22] MEDS: Omeprazole CAP* 20 MG PO SCH (09:45)
[2018-02-22] MEDS: Al Hydrox/Mg Hydrox/Simet LIQ* 30 ML UDC PO PRN (09:45)
[2018-02-22] MEDS ORDERED: Midazolam* 1 MG/ML 10 ML VIAL (10 MG) ONE (12:25)
[2018-02-22] MEDS ORDERED: fentaNYL* 50 MCG/ML 2 ML VIAL (100 MCG VIAL) ONE (12:25)
--- NOTE | 2018-02-22 12:26 | CONS ---
GASTROENTEROLOGY CONSULT: DATE OF CONSULT: 02/22/2018 CHIEF COMPLAINT: Chest discomfort and burning. HISTORY OF PRESENT ILLNESS: Ms. Isabel is a 67-year-old woman with a history of diet-controlled diabetes, hypertension, hyperlipidemia, and anxiety, who presents with complaints of chest burning and discomfort x2 weeks. Ms. Isabel was in her usual state of health until 1 to 2 weeks ago, when she began to notice a burning and pressure sensation in her chest with some radiation to her left arm. The first episode awoke her from sleep. The sensation has occurred intermittently since that time, lasting several minutes at a time and occurring both during the day and occasionally at night. She has found that anxiety seems to be a trigger for her and the symptom. She has had some increased stress recently related to a friend back in [facility] going through a "tough time." She has found that Xanax partially improves the discomfort. She has not noticed any dysgeusia, dysphagia, nausea, vomiting, abdominal pain, change in bowel movements or weight loss. For these symptoms, she underwent a nuclear stress test and an echocardiogram Per cardiology, these cardiac tests have not indicated cardiac disease as the etiology of her chest discomfort. She was given a PPI to start, but only took this once before coming to the ER with ongoing symptoms. On evaluation in the ER, a note was made of a serum sodium of 123. She was admitted for observation and placed on telemetry. She was started on omeprazole 20 mg b.i.d. She also was evaluated by Cardiology, who recommended evaluation by GI to consider noncardiac causes of chest pain. PAST MEDICAL HISTORY: Notable for diet-controlled diabetes, hypertension, hyperlipidemia. PAST SURGICAL HISTORY: History of thyroid surgery remotely, history of hysterectomy remotely, history of left knee surgery. CURRENT MEDICATIONS: History and physical from admission to the hospital reviewed. The patient uses the following meds: 1. Xanax 0.25 on a p.r.n. basis. 2. Crestor. 3. Lexapro. 4. Sulfasalazine. 5. Losartan. 6. Folic acid. 7. Ascorbic acid. 8. Vitamin D. 9. Omeprazole is on her med list but she only took one dose before presenting to the ER. Of note, Ms. Isabel denies regular use of NSAIDs. She recalls taking some Tylenol several weeks ago with hydrocodone for joint pain. ALLERGIES: ASPIRIN causes anaphylaxis. FAMILY HISTORY: H and P notes mother with history of liver cancer. On my interview, Ms. Isabel is unable to recall any specific GI or liver conditions or malignancies. SOCIAL HISTORY: The patient lives part of the time in [facility] and part of the time in [place]. She reports some heavy alcohol use in the past, but just reports social alcohol use most recently. Denies any tobacco or drug use. REVIEW OF SYSTEMS: Full review of systems, 14 points, reviewed with the patient. Symptoms are as described in the HPI. Notably, she denies any shortness of breath or worsening chest pain with exertion. She endorses some joint pain. Otherwise, negative review of systems. PHYSICAL EXAM: Vital Signs: Reviewed. Vital signs at the time of exam notable for temp of 98.7, heart rate 77, blood pressure 127/68, and 100% SpO2 on room air. General: The patient is well appearing and comfortable. In no acute distress. The patient's spouse is at bedside. HEENT: Mucous membranes are moist. Sclerae are anicteric. Tongue is normal in appearance. Cardiovascular: Regular rate and rhythm. Normal S1, S2 without murmurs, rubs, or gallops. Pulmonary: Lungs are clear to auscultation bilaterally. No increased work of breathing. Abdomen: Positive bowel sounds. Soft, nontender, nondistended. Extremities: No edema. DIAGNOSTIC STUDIES/LAB DATA: Labs reviewed. Sodium appears to have improved to 133 today from 124 on admission. Hematocrit and hemoglobin are notably normal. INR is normal. STUDIES: No prior endoscopy procedures to review. IMPRESSION and RECOMMENDATIONS: Ms. Isabel is a 67-year-old woman with a history of anxiety, hypertension, hyperlipidemia, and diet-controlled diabetes, who is admitted with atypical chest pain x1 to 2 weeks and hyponatremia (now resolved). The patient has complaints of chest burning and pressure worsened with stress and lying flat. Her cardiac workup has been unremarkable. I agree that an acid-driven etiology is quite possible, particularly given the negative cardiac work-up. Anxiety may also be contributing. I think it is reasonable to continue the PPI therapy and perform an EGD today to rule-out any organic cause of the chest pain such as esophagitis or peptic ulcer disease. Final recommendations to follow EGD. This plan was discussed with primary provider on the patient's service. [id number]/[facility] #: [id number] STEPHANIE
[2018-02-22] MEDS: sulfaSALAzine TAB* 500 MG PO SCH (14:39)
[2018-02-22 16:38] VITALS: BP 130/63
[2018-02-22] MEDS: ALPRAZolam TAB* 0.25 MG PO PRN (18:30)
--- NOTE | 2018-02-23 05:54 | PRO ---
CC: Amadou Dubois NP; Felicia Benedict MD * DATE OF PROCEDURE: 02/22/18 - ROOM #413 DATE OF : 54 PROCEDURE PERFORMED: EGD. PRIMARY CARE PROVIDER: Amadou Dubois NP. ADMITTING PHYSICIAN: Felicia Benedict MD INDICATION: Atypical chest pain. MEDICATIONS GIVEN: Versed 5 mg IV, fentanyl 75 mcg IV. DESCRIPTION OF PROCEDURE: Full disclosure of risks were reviewed with the patient as detailed on the consent form. The patient was placed in the left lateral decubitus position and monitored with continuous pulse oximetry, interval blood pressure monitoring, and direct observation. A bite-block was placed between the teeth. An Olympus gastroscope was then inserted into the patient's mouth, advanced down the esophagus, into the stomach, and into the distal duodenum. Esophagus was relatively normal in appearance, although there was possible mild linear furrowing in the mid to distal esophagus. The Z-line was regular without overt esophagitis. The GE junction occurred at 35 cm. Biopsies were obtained from the distal and mid esophagus to rule out eosinophilic esophagitis. The stomach was then examined. Gastric mucosa was overall unremarkable without any evidence of erosions or ulcers. The stomach did appear a bit featureless compared to normal. Biopsies were obtained from the gastric antrum and body. These biopsies can be evaluated for H. pylori as well as any other signs of atrophy or intestinal metaplasia. The mid duodenum was normal in appearance. The scope was then withdrawn from the patient. She tolerated the procedure well and was returned to the recovery room in stable condition. IMPRESSION: 1. Complete upper endoscopy to the distal duodenum. 2. No significant abnormalities noted in the esophagus. No esophagitis. Biopsies obtained from esophagus to rule out eosinophilic esophagitis. 3. Slight featureless stomach, but otherwise unremarkable gastric mucosa. Gastric biopsies obtained. RECOMMENDATIONS: 1. Can restart diet. 2. Continue omeprazole 20 mg b.i.d. 3. We will follow up in GI clinic in 4 to 6 weeks to reassess symptom response. Thank you very much for this consult. Please contact the GI on-call provider if any further questions or concerns arise. [id number]/[facility] #: [id number] [facility]
--- NOTE | 2018-02-23 14:58 | DS ---
CC: EMILIA Wong; Dr. Ramirez * DISCHARGE SUMMARY: DATE OF ADMISSION: 02/21/18 DATE OF DISCHARGE: 02/22/18 PRIMARY CARE PROVIDER: EMILIA Wong DISCHARGE DIAGNOSES: 1. Hyponatremia and dehydration, likely related to side effects of Lexapro and anxiety. 2. Association of burning in the chest, likely related to gastroesophageal reflux symptoms. 3. Elevated CPK levels, likely due to new introduction of Crestor. SECONDARY DIAGNOSES: 1. History of hypertension. 2. Hyperlipidemia. 3. History of partial thyroidectomy. 4. Hysterectomy. 5. History of knee surgery. MEDICATIONS AT DISCHARGE: Include: 1. Xanax 0.25 mg on a p.r.n. basis. 2. Vitamin C 500 mg daily. 3. Vitamin D 2000 units daily. 4. Folic acid 1 mg daily. 5. Losartan 25 mg daily. 6. Sulfasalazine 500 mg b.i.d. 7. Prilosec 20 mg b.i.d. The patient was advised to discontinue Lexapro for the time being as this is likely medication that caused hyponatremia. LABORATORY DATA AND STUDIES PERFORMED DURING HOSPITAL STAY: Included: On 02/22, white blood cell count of 7.4, hemoglobin of 12.2, hematocrit of 36, and platelets 257. On the day of discharge, sodium was 132, potassium 3.7, chloride 103, carbon dioxide 22, BUN 8, creatinine 0.59. The patient's troponins were negative throughout her hospital stay. TSH was 1.03 on admission. Urine random sodium was 40. The patient's EGD was performed by Dr. Ramirez from Gastroenterology on , which was grossly unremarkable from the verbal report; the official transcript of the report is still pending at the time of dictation. CONSULTATIONS: The patient also was seen by Dr. Carroll in consultation from Cardiology. HOSPITALIZATION COURSE: Cheryl Isabel is a 67-year-old female, who was seen at our facility with complaints of chest pain on 02/10/18. At that point, a cardiac stress test was read as "intermediate probability," although there were no reversible perfusion defects noted due to the patient's high TID index. The patient was discharged home with recommendations to follow up with her primary care provider. There was no evidence of heart disease at that point. The patient came back to the hospital on 02/21/18 complaining of burning in her chest. The patient was started on proton pump inhibitor the day prior to her presentation to the ED by her primary care provider, but she took only 1 tablet. She was feeling unwell and anxious. The patient stated that she has a good friend in [facility] that is undergoing cancer treatment and she is very concerned about her. She appeared dehydrated and her sodium was 123. After initial rehydration, her sodium heather appropriately. She did have what appears to be an appropriate level of sodium in her urine at 40 despite her hyponatremia. It appears that her hyponatremia is multifactorial and is a combination of SIADH and dehydration. The patient also was started on Lexapro just within the past week and a half and it is possible that Lexapro was the cause of the patient's hyponatremia. Dr. Carroll saw the patient in Cardiology consultation and noted that when he reviewed the cardiac stress test himself, it appeared to be low risk and no further studies were recommended at that point. The patient was seen by our lever operator, Dr. Ramirez, who recommended and performed an endoscopy. The verbal report that I got from Dr. Ramirez was basically unremarkable. At this point, the patient is recommended to be discharged home and follow up with her primary care provider. The patient is also going to follow up as outpatient in the gastroenterology office; we will call the patient with followup appointment. It appears that many of the patient's symptoms may be psychological. Nevertheless, she felt much better after intravenous hydration and she is planning to see a therapist as outpatient. Please also note that the patient was started on Crestor due to dyslipidemia approximately a week ago and her CPK level was noted to be elevated at 410. At discharge, the patient's Crestor was discontinued. The patient is recommended to follow up with her primary care provider in approximately 4 to 7 days. PHYSICAL EXAM AT THE TIME OF DISCHARGE: Blood pressure of 130/80, heart rate of 67 and regular, respiratory rate 16, oxygen saturation 99% on room air, temperature 97.8. General: The patient is a very pleasant 67-year-old female, who is in no acute distress. Alert, awake, and oriented x3. HEENT: Head: Atraumatic, normocephalic. Eyes: Pupils are equal, reactive to light and accommodation. Oropharynx is clear. Mucosa moist. Neck: Supple. No JVD. No bruits bilaterally. Cardiovascular: Regular rate and rhythm. No murmur. Respiratory: Clear to auscultation bilaterally. Abdomen: Soft, nontender. Bowel sounds are present in all 4 quadrants. Extremities: There is no edema. Pulses are 2+ bilaterally. There is no clubbing or cyanosis. Neuro Evaluation : Speech clear. Cranial nerves II through XII grossly intact. Motor strength is 5/5 bilaterally. Please note that this is a short summary of the patient's hospital stay. Please refer to further medical records for details. TIME SPENT: Approximately 45 minutes was spent on the patient's discharge. [id number]/[facility] #: [id number] MTDD
== END 2018-02-22 20:10 | disposition home or self-care (01) ==
LOC: ED 12:09 → MED 16:10
PROVIDERS: ADMIT Internal Medicine; ATTEND Internal Medicine
PROC: 0DB58ZX Excision of Esophagus, Via Natural or Artificial Opening Endoscopic, Diagnostic (ICD-10-PCS; principal; 2018-02-21)
PROC: 0DB68ZX Excision of Stomach, Via Natural or Artificial Opening Endoscopic, Diagnostic (ICD-10-PCS; 2018-02-21)
DX: R07.9 Chest pain, unspecified (principal); E87.1 Hypo-osmolality and hyponatremia; E86.0 Dehydration; K29.50 Unspecified chronic gastritis without bleeding; K21.9 Gastro-esophageal reflux disease without esophagitis; R79.89 Other specified abnormal findings of blood chemistry; I10 Essential (primary) hypertension; E78.5 Hyperlipidemia, unspecified; Z79.899 Other long term (current) drug therapy; E11.9 Type 2 diabetes mellitus without complications
CPT/HCPCS: 36415; 71045; 80048; 80053; 82550; 82553; 83605; 83735; 83880; 84300; 84443; 84484; 85025; 85610; 85730; 88305; 88342; 93005; 96360; 96361; 96372; 99156; 99157; 99283; A9270-GY; G0378; J1644; J2250; J3010